=== PATIENT | male | born 1935 | race Caucasian/White ===

== ENCOUNTER 2016-12-29 06:46 | Inpatient (IN) | payer MEDICARE, BC ==
[~2016-12-29 06:46] MED LIST: HYDROCODONE-APA1 TAB PO; LASIX40 MG PO; PLAVIX75 MG PO; PRAVACHOL40 MG PO; PRAVACHOL80 MG; PRINIVIL20 MG; PRINIVIL20 MG PO; TOPROL XL100 MG PO
[2016-12-29 07:26] LABS: BASOPHILS 0.3 % (0-2); EOSINOPHILS 0.5 % (0-7); HEMATOCRIT 40.5 % (42.0-54.0); HEMOGLOBIN 13.5 g/dL (13.5-17.5); IMMATURE GRANULOCYTES 0.2 % (0-5); LYMPHOCYTES 6.2 % (15-50); MCH 30.9 pg (26.0-34.0); MCHC 33.3 g/dL (31.0-37.0); MCV 92.7 fL (80.0-100.0); MEAN PLATELET VOLUME 10.2 fL (7.4-10.4); NEUTROPHILS 83.8 % (40-80); RBC 4.37 10x6/uL (4.20-6.10); WBC 16.6 10x3/uL (4.8-10.8)
[2016-12-29 07:28] LABS: PLATELET COUNT 221 10x3/uL (130-400)
[2016-12-29 07:41] LABS: ALBUMIN 3.6 g/dL (3.4-5.0); ANION GAP 16.4 mmol/L (8-16); BILIRUBIN - TOTAL 0.81 mg/dL (0.2-1.3); CALCIUM 9.9 mg/dL (8.5-10.1); CARBON DIOXIDE 25.3 mmol/L (21.0-32.0); CREATININE - SERUM 1.1 mg/dL (0.6-1.3); POTASSIUM - SERUM 4.7 mmol/L (3.5-5.1); PROTEIN - SERUM 7.8 g/dL (6.4-8.2)
[2016-12-29 07:44] LABS: APPEARANCE CLEAR (CLEAR); COLOR YELLOW (YELLOW); NITRITE NEGATIVE (NEGATIVE)
[2016-12-29 07:45] LABS: BILIRUBIN NEGATIVE (NEGATIVE); GLUCOSE NEGATIVE (NEGATIVE); KETONE SMALL mg/dL (NEGATIVE); PROTEIN 3+ mg/dL (NEGATIVE); UROBILINOGEN NORMAL (NORMAL)
[2016-12-29 07:47] LABS: BACTERIA FEW /hpf (NONE SEEN); EPITHELIAL CELLS 0-5 /hpf (0-5); RED CELLS - URINE 0-5 /hpf (0-5); WHITE CELLS - URINE 0-5 /hpf (0-5)
[2016-12-29 08:01] LABS: TROPONIN-I 0.181 ng/mL (0.000-0.060)
--- NOTE | 2016-12-29 10:10 | NUR ---
0950- RECEIVED PT VIA WHEELCHAIR FROM OR NURSE.
[2016-12-29 10:14] VITALS: BP 180/96; BMI 24.8
[2016-12-29 12:00] VITALS: BP 182/86
[2016-12-29 12:25] LABS: CKMB 3.9 U/L (0.0-3.6); CREATINE KINASE 154 UL (21-232); TROPONIN-I 0.212 ng/mL (0.000-0.060)
--- NOTE | 2016-12-29 14:34 | NUR ---
ON MONITOR SHOWING SR, HR 83 WITH PVCS PER MANISH IN TELEMETRY.
--- NOTE | 2016-12-29 15:41 | NUR ---
EKG DONE AND PLACED IN CHART.
[2016-12-29 16:00] VITALS: BP 122/73
--- NOTE | 2016-12-29 18:21 | NUR ---
PT IS CURRENTLY LAYING IN BED WITH EYES OPEN RESTING. IS AT BEDSIDE. NO NEED AT THIS CURRENT TIME. WILL CONTINUE TO MONITOR.
[2016-12-29 18:43] LABS: CREATINE KINASE 196 UL (21-232)
[2016-12-29 18:51] LABS: TROPONIN-I 0.163 ng/mL (0.000-0.060)
--- NOTE | 2016-12-29 19:41 | NUR ---
RESUMED CARE OF PT, LYING IN BED WITH EYES CLOSED RESPIRATIONS EVEN AND UNLABORED ON 2LPM VIA NC. AT BEDSIDE, NO NEEDS NOTED AT THIS TIME. 61 SR ON TELEMETRY. LEFT HAND SALINE LOCKED. CALL LIGHT IN REACH. WILL CONTINUE TO MONITOR. SEE NURSE ASSESSMENT.
[2016-12-29 20:00] VITALS: BP 161/64
[2016-12-30] VITALS: BP 167/62
--- NOTE | 2016-12-30 01:12 | NUR ---
IV INFILTRATED TO LEFT HAND. 22 GAUGE X 2 STICKS TO RIGHT FOREARM. LASIX TO RIGHT FOREARM. WILL CONTINUE TO MONITOR. CALL LIGHT IN REACH.
--- NOTE | 2016-12-30 05:31 | NUR ---
NO CHANGES FROM PREVIOUS ASSESSMENT, AT BEDSIDE. RESTED WELL LAST NIGHT.
[2016-12-30 06:06] LABS: BASOPHILS 0.4 % (0-2); EOSINOPHILS 2.9 % (0-7); HEMATOCRIT 37.5 % (42.0-54.0); HEMOGLOBIN 12.2 g/dL (13.5-17.5); IMMATURE GRANULOCYTES 0.1 % (0-5); LYMPHOCYTES 15.9 % (15-50); MCH 30.2 pg (26.0-34.0); MCHC 32.5 g/dL (31.0-37.0); MCV 92.8 fL (80.0-100.0); MEAN PLATELET VOLUME 9.9 fL (7.4-10.4); MONOCYTES 10.7 % (2-11); PLATELET COUNT 223 10x3/uL (130-400); RBC 4.04 10x6/uL (4.20-6.10); RDW 12.9 % (11.5-14.5)
[2016-12-30 06:13] LABS: WBC 10.9 10x3/uL (4.8-10.8)
[2016-12-30 06:23] LABS: ANION GAP 12.9 mmol/L (8-16); CALCIUM 9.4 mg/dL (8.5-10.1); CARBON DIOXIDE 27.1 mmol/L (21.0-32.0); CREATININE - SERUM 1.4 mg/dL (0.6-1.3)
[2016-12-30 08:00] VITALS: BP 182/91
[2016-12-30 12:00] VITALS: BP 179/82
[2016-12-30 13:21] VITALS: BMI 24.7
[2016-12-30 16:00] VITALS: BP 166/85
--- NOTE | 2016-12-30 19:16 | NUR ---
THIS SHIFT PT HAS AMBULATED IN ROOM AND IN HALLWAY WITH P.T. PT VERY ANXIOUS ABOUT DR. SHAH SEEING HIM. EXPLAINED TO HIM ABOUT BEING IN ISOLATION AND ALYSSA WILL SEE AFTER NOT IN ISOLATION. SEE ASSESSMENT FOR FURTHER EVAL.
--- NOTE | 2016-12-30 19:25 | NUR ---
ROUNDING NOTE: PT IS ON DROPLET PRECAUTIONS FOR +FLU. PT IS A,A,OX3, SITTING UP IN BED AT CHANGE OF SHIFT W/ AT THE BEDSIDE. PT IS VERY [place]. PT ASKING QUESTIONS ABOUT INSURANCE COVERAGE, REFERRED PT AND TO CHECK WITH BUSINESS OFFICE DURING DAYTIME HOURS. RIGHT FOREARM IV SITE, SALINE LOC. ON IS NSR ON THE MONITOR. NO NEEDS OTHER THAN A FRESH ICE WATER. WILL CONT TO MONITOR.
[2016-12-30 22:18] VITALS: BP 176/77
[2016-12-31 02:50] VITALS: BP 150/69
[2016-12-31 05:24] LABS: BASOPHILS 0.7 % (0-2); EOSINOPHILS 3.5 % (0-7); HEMATOCRIT 38.8 % (42.0-54.0); HEMOGLOBIN 12.6 g/dL (13.5-17.5); IMMATURE GRANULOCYTES 0.2 % (0-5); MCH 30.1 pg (26.0-34.0); MCHC 32.5 g/dL (31.0-37.0); MCV 92.8 fL (80.0-100.0); MEAN PLATELET VOLUME 9.8 fL (7.4-10.4); MONOCYTES 11.6 % (2-11); PLATELET COUNT 234 10x3/uL (130-400); RBC 4.18 10x6/uL (4.20-6.10); WBC 9.8 10x3/uL (4.8-10.8)
[2016-12-31 05:35] VITALS: BP 170/67
[2016-12-31 05:53] LABS: ANION GAP 10.7 mmol/L (8-16); CALCIUM 9.4 mg/dL (8.5-10.1); CARBON DIOXIDE 32.2 mmol/L (21.0-32.0); CREATININE - SERUM 1.3 mg/dL (0.6-1.3); POTASSIUM - SERUM 3.9 mmol/L (3.5-5.1)
--- NOTE | 2016-12-31 07:30 | NUR ---
AM ROUNDING DONE WITH NIGHT NURSE. PATIENT IS UP IN HIS ROOM (DROPLET ISOLATION) WITH IN ROOM IN PPE. RIGHT FA SEEN WITH SALINE LOCK. ON HEART MONITOR SHOWING SB, HR 59. ON EP, LAB VALUES ARE GOOD. ON ROOM AIR. WILL MONIOTR.
[2016-12-31 08:32] VITALS: BP 163/79
[2016-12-31 12:34] VITALS: BP 174/91
[2016-12-31] MEDS ORDERED: TAMIFLU75 MG PO (14:12)
[2016-12-31] MEDS ORDERED: NITRO-DUR0.3 MG TRANSDERM (14:13)
--- NOTE | 2016-12-31 16:20 | NUR ---
VERBAL AND WRITTEN DISCHARGE INSTRUCTIONS GIVEN TO PATIENT. SALINE LOCK REMOVED WITH CATH TIP INTACT. DISCHARGED WITH YELLOW MASK ON HOME VIA WHEELCHAIR.
--- NOTE | 2016-12-31 17:28 | NUR ---
Patient Name: SATURNINO SANDOVAL Admission Status: ER Accout number: [id number] Admission Date: 12-29-2016 : 1935 Admission Diagnosis:HYPOXEMIA Attending: MECHELLE SMITH Current LOS: 2 Anticipated DC Date: 12-31-2016 Planned Disposition: Home Primary Insurance: MEDICARE A & B Discharge Planning Comments: * Is the patient Alert and Oriented? Yes 0 * How many steps to enter\exit or inside your home? NONE 0 * PCP DR. CONDE CARIOLOGIST DR. SHAH 0 * Pharmacy [facility] 0 * Preadmission Environment Home with Family 0 * ADLs Independent 0 * Equipment Cane Walker 0 * Other Equipment NO MEDICAL EQUIPMENT PROVIDER PREFERENCE 0 * List name and contact numbers for known caregivers / representatives who currently or will assist patient after discharge: NAHID SANDOVAL, SPOUSE, 0 * Community resources currently utilized None 0 * Please name any agencies selected above. NONE 0 * Additional services required to return to the preadmission environment? No 0 * Can the patient safely return to the preadmission environment? Yes 0 * Has this patient been hospitalized within the prior 30 days at any hospital? No 0 CM MET WITH PT IN ROOM TO DISCUSS DISCHARGE PLANNING AND NEEDS. PT REPORTS LIVING AT HOME INDEPENDENTLY WITH SPOUSE. PT HAS CANE AND WALKER WITH NO MEDICAL EQUIPMENT PROVIDER AND NO OUTSIDE SERVICES ASSISTING IN THE HOME. CM DISCUSSED AVAILABILITY OF HOME HEALTH, REHAB SERVICES AND MEDICAL EQUIPMENT. PT DENIES DISCHARGE NEEDS, REPORTS HIS IS HERE TO PICK HIM UP FOR DISCHARGE HOME. IMPORTANT MESSAGE FROM MEDICARE PROVIDED AND EXPLAINED. Assistant Mechanic: Dylan Washington
== END 2016-12-31 16:27 | disposition home or self-care (01) | DRG 152 ==
LOC: D.ER 06:46 → D.M2 08:55
PROVIDERS: Emergency Medicine; ADMIT Family Medicine
DX: J11.1 Influenza due to unidentified influenza virus with other respiratory manifestations (principal); I50.31 Acute diastolic (congestive) heart failure; I25.10 Atherosclerotic heart disease of native coronary artery without angina pectoris; I11.0 Hypertensive heart disease with heart failure; Z72.0 Tobacco use; Z95.5 Presence of coronary angioplasty implant and graft

== ENCOUNTER 2017-01-07 07:42 | Inpatient (IN) | payer MEDICARE, BC ==
[~2017-01-07] VITALS: Ht 170.2 cm; Wt 73.6 kg
--- NOTE | ~2017-01-07 | HEMODYNAMI ---
PATIENT:SATURNINO SANDOVAL DARRELL MEDICAL RECORD: [id number] : [birth year] LOCATION:[address] ADMISSION DATE: 01/07/17 Generatedon:01/08/201712:56 Patient name: SATURNINO SANDOVAL Patient #: [id number] SSN: : 1935 Date of study: 01/08/2017 Page: Of Hemodynamic Procedure Report Patient Data Patient Demographics Procedure consent was obtained First Name: SATURNINO Gender: Male Last Name: LORI : 1935 [facility] Initial: CHALINO Age: 81 year(s) Patient #: [id number] Race: Additional ID: [id number] Contact details Address: [address] [place] [address] State: [place] City: [facility] Zip code: [address] Past Medical History History of disease Date Diagnosis Comments CAD PVD Allergies: No known allergies Admission Admission Data Admission Date: 01/07/2017 Admission Time: 11:18 Room #: [facility] Procedure Procedure Types Cath Procedure Diagnostic Procedure [facility] w/Coronaries PCI Procedure Coronary Stent Coronary Stent Initial Miscellaneous Procedures Moderate Sedation up to 30 minutes Procedure Description Procedure Date Procedure Date: 01/08/2017 Procedure Start Time: 12:27 Procedure End Time: 12:56 Procedure Staff Name Function Eliecer Castellano MD Performing Physician Shelli Solis RT Monitor Soo Novak RT Scrub Joseph Osuna RN Nurse Procedure Data Cath Procedure Fluoroscopy Diagnostic fluoroscopy Total fluoroscopy Time: 11 time: 11 min min Diagnostic fluoroscopy Total fluoroscopy dose: 759 dose: 759 mGy mGy Contrast Material Contrast Material Type Amount (ml) Isovue 300 97 Entry Location Entry Primary Successful Side Size Upsize Upsize Entry Closure Harrison ccessful Closure Location (Fr) 1 (Fr) 2 (Fr) Remarks Device Remarks Radial Right 6 Fr Mechanical artery Short Compression Estimated blood loss: 10 ml Diagnostic catheters Device Type Used For End Catheter Placement Terumo 5Fr Luis 110cm LV Angiography catheter Terumo 5Fr Luis 110cm Left Coronary catheter Angiography Terumo 5Fr Luis 110cm Right Coronary catheter Angiography Procedure Complications No complications Procedure Medications Medication Administration Route Dosage Oxygen NC 2 l/min Heparin Flush Bag added to field 2 bags (1000units/500ml NS) 0.9% NaCl I.V. 100 ml/hr Radial Cocktail added to field 1 syringe (Verapomil 2mg/Nitro 400mcg/Heparin 1500units) Fentanyl I.V. 50 mcg Versed I.V. 1 mg Radial Cocktail I.A. 1 syringe (Verapomil 2mg/Nitro 400mcg/Heparin 1500units) Heparin Bolus I.V. 4000 units Hemodynamics Rest Heart Rate: 52 (bpm) Snapshots Pre Cath Intra NCS Post Cath Vital Signs Time Heart Resp SPO2 etCO2 NIBP (mmHg) Rhythm Pain Sedation Rate (ipm) (%) (mmHg) Status Level (bpm) 12:14:53 51 22 99 0 139/85(118) NSR 0 (11) 10(A) , No pain 12:20:35 50 18 99 0 155/84(131) NSR 0 (11) 10(A) , No pain 12:26:09 50 25 98 12.7 174/71(134) NSR 0 (11) 9(A) , No pain 12:30:56 57 24 96 0 117/64(88) NSR 0 (11) 9(A) , No pain 12:35:34 55 21 95 0 107/65(78) NSR 0 (11) 9(A) , No pain 12:40:15 57 20 95 0 118/62(95) NSR 0 (11) 9(A) , No pain 12:44:54 57 19 96 0 120/81(111) NSR 0 (11) 9(A) , No pain 12:50:17 61 19 97 0 132/68(105) NSR 0 (11) 9(A) , No pain 12:55:00 54 20 97 0 128/76(104) NSR 0 (11) 9(A) , No pain Medications Time Medication Route Dose Verified Delivered Reason Note s Effectiveness by by 12:14:30 Oxygen NC 2 l/min Eliecer Ruiz Per physician Nona Osuna RN 12:14:41 Heparin Flush added 2 bags Eliecer Ruiz used for Bag to Nona Osuna masking machine feeder (1000units/500ml field NS) 12:14:53 0.9% NaCl I.V. 100 Eliecer Ruiz Per physician ml/hr Nona Osuna RN 12:15:03 Radial Cocktail added 1 Eliecer Ruiz used for (Verapomil to syringe Nona Osuna RN procedure 2mg/Nitro field 400mcg/Heparin 1500units) 12:18:07 Fentanyl I.V. 50 mcg Eliecer Ruiz for sedation Nona Osuna RN 12:18:17 Versed I.V. 1 mg Eliecer Ruiz for sedation Nona Osuna RN 12:29:14 Radial Cocktail I.A. 1 Eliecer Gonzáles for (Verapomil syringe Nona Castellano MD vasodilation 2mg/Nitro 400mcg/Heparin 1500units) 12:32:32 Heparin Bolus I.V. 4000 Eliecer Ruiz for units Nona Osuna RN anticoagulation Procedure Log Time Note 11:40:26 Time tracking: Regular hours 11:40:31 Plan of Care:Hemodynamics will remain stable., Cardiac rhythm will remain stable., Comfort level will be maintained., Respiratory function will remain adequate., Patient/ family verbilizes understanding of procedure., Procedure tolerated without complication., Recovers from procedure without complications.. 11:52:51 Shelli Counts RT(R) sent for patient. Start room use. 12:07:08 Patient received from PCU to CCL 1 Alert and oriented. Tansferred to table in Supine position. 12:13:57 Vital chart was started 12:14:30 Oxygen 2 l/min NC was administered by Joseph Osuna RN; Per physician; 12:14:41 Heparin Flush Bag (1000units/500ml NS) 2 bags added to field was administered by Joseph Osuna RN; used for procedure; 12:14:53 0.9% NaCl 100 ml/hr I.V. was administered by Joseph Osuna RN; Per physician; 12:15:03 Radial Cocktail (Verapomil 2mg/Nitro 400mcg/Heparin 1500units) 1 syringe added to field was administered by Joseph Osuna RN; used for procedure; 12:17:16 Warm blankets applied, and dong hugger turned on for patient comfort. 12:17:16 Correct patient and procedure confirmed by team. 12:17:18 Signed procedure consent form obtained from patient. 12:17:19 ECG and BP/O2 sat monitors applied to patient. 12:18:07 Fentanyl 50 mcg I.V. was administered by Joseph Osuna RN; for sedation; 12:18:17 Versed 1 mg I.V. was administered by Joseph Osuna RN; for sedation; 12:18:54 Baseline sample Acquired. 12:18:57 Full Disclosure recording started 12:19:01 Rhythm: sinus bradycardia 12:19:15 H&P Date Dictated: 01/07/2017 Within 30 days and on chart., H&P Addendum completed by physician on day of procedure. (MUST COMPLETE FOR ALL OUTPATIENTS). 12:19:17 Pre-procedure instructions explained to patient. 12:19:17 Pre-op teaching completed and patient verbalized understanding. 12:19:18 Family in waiting room. 12:19:20 Patient NPO since Midnight. 12:19:33 Patient allergic to No known allergies 12:19:35 Is the patient allergic to Iodine/contrast media? No. 12:19:38 Is patient on blood thinner?Yes 12:19:41 ACC The patient was administered the following blood thiners within the last 24 hours: ACCPlavix 12:21:36 Patient diabetic? No. 12:21:41 Previous problem with sedation/anesthesia? No ? 12:21:42 Snore? Yes 12:21:43 Sleep apnea? No 12:21:44 Deviated septum? No 12:21:45 Opens mouth fully? Yes 12:21:46 Sticks out tongue? Yes 12:21:47 Airway obstruction? No ? 12:21:49 Dentures? No ? 12:21:53 Pre procedure: right dorsailis pedis pulse 2+ Normal; easily identifiable; not easily obliterated 12:21:55 Modified Du's test Ulnar < 7 seconds 12:21:59 Patient pain scale 0/10 ?. 12:22:07 IV patent on arrival in left forearm with 0.9% NaCl at [facility]. 12:22:11 Lab results completed and on chart. 12:22:15 Right Radial area was prepped with chlora-prep and draped in sterile fashion 12:22:16 Alarms reviewed by R. N. 12:22:16 Sharps counted by scrub and verified by RNileN. 12::23 Zero performed for pressure channel P1 12:: Zero performed for pressure channel P1 12::37 Final Timeout: patient, procedure, and site verified with staff and physician. All members of the team are in agreement. 12::40 Right Radial site verified by team. 12::43 Physical assessment completed. ASA score P 2 - A patient with mild systemic disease as per Eliecer Castellano MD. 12::46 Sedation plan: IV Moderate Sedation Medication:Versed, Fentanyl 12::50 Use device set Radial Dx 12::51 Acist Syringe opened to sterile field. 12::52 Medline Cath Pack opened to sterile field. 12::52 Bag Decanter opened to sterile field. 12::52 Terumo 6Fr Slender Glidesheath opened to sterile field. 12::53 St Neal 260cm J .035 wire opened to sterile field. 12::53 Acist Hand Control opened to sterile field. 12::53 Acist Manifold opened to sterile field. 12::54 Tegaderm 4 x 4 opened to sterile field. 12:22:54 MBrace Wrist Support opened to sterile field. 12:27:10 Procedure started. 12::18 Local anesthetic to right radial artery with Lidocaine 2% by Eliecer Castellano MD.INITIAL ACCESS ONLY 12:27:50 A 6 Fr Short sheath was inserted into the Right Radial artery 12:29:11 A Terumo 5Fr Luis 110cm catheter was advanced over the wire and used for LV Angiography. 12:29:14 Radial Cocktail (Verapomil 2mg/Nitro 400mcg/Heparin 1500units) 1 syringe I.A. was administered by Eliecer Castellano MD; for vasodilation; 12::37 LV gram done using ZELAYA 12::42 EF : 55 % 12::46 Injector settings: Ml/sec: 5, Volume: 15, 12:29:54 A Terumo 5Fr Luis 110cm catheter was advanced over the wire and used for Left Coronary Angiography. 12:30:24 A Terumo 5Fr Luis 110cm catheter was advanced over the wire and used for Right Coronary Angiography. 12:31:14 Catheter removed. 12:31:36 Cordis 6FR XBLAD 3.5 guide catheter opened to sterile field. 12:31:36 Piper Whisper J 300cm 0.014 guide wire opened to sterile field. 12:31:37 Natalya BasixCompak Inflation Kit opened to sterile field. 12:32:21 6 Fr XBLAD 3.5 guide catheter was inserted over the wire 12:32:32 Heparin Bolus 4000 units I.V. was administered by Joseph Osuna RN; for anticoagulation; 12:33:13 Whisper wire advanced. 12:34:58 The Medtronic Integrity 2.5 X 22 stent was advanced then removed because of failure to cross lesion 12:36:16 Inflation number: 1 A Euphora 2.5 x 20 Balloon was prepped and advanced across the 1st Diag, then inflated to 15 ALEXANDER for 0:04 (min:sec). 12:36:27 Inflation number: 2 The Euphora 2.5 x 20 Balloon was reinflated across the 1st Diag, to 17 ALEXANDER for 0:07 (min:sec). 12:36:37 Balloon removed over the wire. 12:38:19 Inflation Number: 3 A Medtronic Integrity 2.5 X 22 stent was prepped and advanced across the 1st Diag. The stent was deployed at 13 ALEXANDER for 0:08 (min:sec). 12:38:29 Stent catheter was removed intact over wire. 12:40:50 The Medtronic Integrity 2.5 X 12 stent was advanced then removed because of failure to cross lesion 12:42:03 Inflation number: 4 The Euphora 2.5 x 20 Balloon was reinflated across the 1st Diag, to 19 ALEXANDER for 0:09 (min:sec). 12:44:19 The Medtronic Integrity 2.5 X 12 stent was advanced then removed because of failure to cross lesion 12:45:45 Choice PT ES wire advanced. 12:46:26 Cornelia Sci Choice PT Extra Support J 300cm .014 gu opened to sterile field. 12:47:11 Inflation number: 5 A Cornelia Sci Wasatch 3.0 X 12 balloon was prepped and advanced across the 1st Diag, then inflated to 13 ALEXANDER for 0:08 (min:sec). 12:47:19 Inflation number: 6 The Cornelia Sci Wasatch 3.0 X 12 balloon was reinflated across the 1st Diag, to 13 ALEXANDER for 0:05 (min:sec). 12:47:37 Inflation number: 7 The Cornelia [employer] Wasatch 3.0 X 12 balloon was reinflated across the 1st Diag, to 17 ALEXANDER for 0:06 (min:sec). 12:47:49 Balloon removed over the wire. 12:49:20 whisper removed 12:49:29 Inflation Number: 8 A Medtronic Integrity 2.5 X 12 stent was prepped and advanced across the 1st Diag. The stent was deployed at 21 ALEXANDER for 0:05 (min:sec). 12:49:45 Stent catheter was removed intact over wire. 12:49:47 Wire removed. 12:49:48 Guide catheter removed. 12:50:06 Sheath removed intact; hemostasis achieved with Mechanical Compression to the Right Radial artery. 12:50:08 Procedure ended.(Physican Out) 12:50:18 Fluoroscopy time 11.00 minutes. 12:50:27 Flurop Dose total: 759 12:50:27 Fluoroscopy dose: 759 mGy 12:50:41 Contrast amount:Isovue 300 97ml. 12:50:44 Sharps counted by scrub and verified by R.N. 12:50:47 TR band inflated with 12cc of air. 12:50:48 Insertion/operative site no bleeding no hematoma. 12:50:53 Post right radial artery:stable, clean and dry 12:50:55 Post Procedure Pulses reassessed and unchanged 12:50:57 Post-procedure physical assessment completed. ASA score P 2 - A patient with mild systemic disease as per Eliecer Castellano MD. 12:51:00 Post procedure rhythm: unchanged. 12:51:02 Estimated blood loss: 10 ml 12:51:04 Post procedure instruction explained to patient.Patient verbalizes understanding. 12:51:05 Patient needs reinforcement of post procedure teaching. 12:51:21 Procedure type changed to Cath procedure, Diagnostic procedure, LHC, LHC w/Coronaries, PCI procedure, Coronary Stent, Coronary Stent Initial, Miscellaneous Procedures, Moderate Sedation up to 30 minutes 12:51:43 Terumo TR Band Standard opened to sterile field. 12:52:32 Procedure Complication : No complications 12:52:38 See physician's report for complete and final results. 12:54:19 Procedure and supply charges have been captured, reviewed, submitted and are correct. 12:55:52 Vital chart was stopped 12:55:54 Report given to PCU. 12:55:57 Patient transfered to PCU with Bed. 12:56:10 Procedure ended. 12:56:10 Full Disclosure recording stopped 12:56:14 End room use (Document Last) Intervention Summary Intervention Notes Time ActionType Lesion and Equipment Action# Pressure Duration Attributes Used 12:34:58 Discard Medtronic Stent Integrity 2.5 X 22 stent 12:36:16 Inflate 1st Diag Euphora 1 15 00:04 balloon 2.5 x 20 Balloon 12:36:27 Reinflate 1st Diag Euphora 2 17 00:07 balloon 2.5 x 20 Balloon 12:38:19 Place stent 1st Diag Medtronic 3 13 00:09 Integrity 2.5 X 22 stent 12:40:50 Discard Medtronic Stent Integrity 2.5 X 12 stent 12:42:03 Reinflate 1st Diag Euphora 4 19 00:09 balloon 2.5 x 20 Balloon 12:44:19 Discard Medtronic Stent Integrity 2.5 X 12 stent 12:47:11 Inflate 1st Diag Cornelia 5 13 00:08 balloon Sci Wasatch 3.0 X 12 balloon 12:47:19 Reinflate 1st Diag Cornelia 6 13 00:05 balloon Sci Wasatch 3.0 X 12 balloon 12:47:37 Reinflate 1st Diag Cornelia 7 17 00:06 balloon Sci Wasatch 3.0 X 12 balloon 12:49:29 Place stent 1st Diag Medtronic 8 21 00:06 Integrity 2.5 X 12 stent Device Usage Item Name Manufacture Quantity Catalog Number [facility] Part Current [facility] Lot# / Charge Number Stock Stock Serial# Code Acist Acist 1 64674 896924 193900 571804 20 Syringe Medical Systems Inc Medline Cardinal 1 [id number] 409505 75780 923405 5 Cath Pack Health Bag Microtek 1 2001S 818473 58247 288583 5 Blendspace Inc. Terumo 6Fr Terumo 1 [id number] 086678 242098 713630 [address] Neal St Neal 1 254383 812315 207392 459538 30 260cm J .035 wire Acist Hand Acist 1 31032 269217 004655 520096 5 Simplee Medical Systems Inc Acist Acist 1 52637 784070 647901 954684 5 Everest Software Medical Systems Inc Tegaderm 4 3M 1 1626W 013369 663102 954596 5 x 4 MBrace Advanced 1 140-0250-00 633825 88066 735356 5 Wrist Vascular Support Dynamics Terumo 5Fr Terumo 1 71-1451 954167 664930 769717 5 Luis 110cm catheter Cordis 6FR Cardinal 1 [id number] 555059 384217 912161 10 XBLAD 3.5 Health guide catheter Piper Piper 1 [id number] 587834 765274 176925 5 Whisper J Vascular 300cm 0.014 guide wire Merit Merit 1 [id number] 350247 435481 956165 15 BasixCompak Medical Inflation Kit Medtronic Medtronic 1 [id number] 394900 841123 5 [id number] Integrity 2.5 X 22 stent Euphora 2.5 Medtronic 1 [id number] 165487 536953 512462 5 [id number] x 20 Balloon Medtronic Medtronic 2 [id number] 774423 419585 3 [id number] Integrity [id number] 2.5 X 12 stent Cornelia Sci Cornelia 1 [id number] 234071 030543 383979 5 Choice PT Scientific Extra Support J 300cm .014 gu Cornelia Sci Cornelia 1 [id number] 549884 596228 918888 1 [id number] Parametric Sound Scientific 3.0 X 12 balloon Terumo TR Terumo 1 [id number] 033811 315218 440038 40 Band Standard Signature Audit [place] Stage Time Signature Unsigned Intra-Procedure 01/08/2017 Shelli 12:56:23 PM Counts RT(R) Signatures Monitor : Shelli Signature : Counts RT Date : Time : [facility] [address] [place] [address]
[~2017-01-07 07:42] MED LIST changes: +NITRO-DUR0.3 MG TRANSDERM; +TAMIFLU75 MG PO
[2017-01-07 08:14] LABS: BASOPHILS 0.4 % (0-2); EOSINOPHILS 1.3 % (0-7); HEMOGLOBIN 14.1 g/dL (13.5-17.5); IMMATURE GRANULOCYTES 0.3 % (0-5); LYMPHOCYTES 10.3 % (15-50); MCH 30.2 pg (26.0-34.0); MCHC 32.8 g/dL (31.0-37.0); MCV 92.1 fL (80.0-100.0); MEAN PLATELET VOLUME 9.4 fL (7.4-10.4); MONOCYTES 8.5 % (2-11); NEUTROPHILS 79.2 % (40-80); RBC 4.67 10x6/uL (4.20-6.10); RDW 12.8 % (11.5-14.5); WBC 14.2 10x3/uL (4.8-10.8)
[2017-01-07 08:23] LABS: ALBUMIN 3.8 g/dL (3.4-5.0); ALKALINE PHOSPHATASE 76 U/L (46-116); ALT (SGPT) 22 U/L (10-68); CALC OSMOLALITY 281 mosm/kg (275-300); CALCIUM 9.9 mg/dL (8.5-10.1); CARBON DIOXIDE 27.2 mmol/L (21.0-32.0); CHLORIDE - SERUM 101 mmol/L (98-107); CREATININE - SERUM 1.1 mg/dL (0.6-1.3); GLUCOSE 139 mg/dL (74-106); POTASSIUM - SERUM 4.6 mmol/L (3.5-5.1); PROTEIN - SERUM 7.8 g/dL (6.4-8.2); SODIUM 139 mmol/L (136-145); UREA NITROGEN 18 mg/dL (7-18); eGFR NON AFRICAN AMERICAN 68 mL/min (90-120)
[2017-01-07 08:33] LABS: CKMB 1.5 U/L (0.0-3.6); CREATINE KINASE 60 UL (21-232); PRO BNP 8763 pg/mL (0-450); TROPONIN-I 0.029 ng/mL (0.000-0.060)
[2017-01-07 08:44] LABS: PLATELET COUNT 303 10x3/uL (130-400)
--- NOTE | 2017-01-07 10:31 | NUR ---
Spoke to Yue in [facility] regarding consult. Faxed face sheet as requested to [phone]. Dr. Elam will be the consulting physician.
--- NOTE | 2017-01-07 12:35 | NUR ---
RECEIVED REPORT FROM SILVIA CANDELARIO IN ER. SILVIA CANDELARIO STATES PTS B/P IS 189/77. THIS NURSE ASKS IF PT HAS HAD ANY PRN MEDICATION OR ANYTHING FOR B/P IN ER. SILVIA CANDELARIO STATES HE HAS NOT HAD ANYTHING ORDERED. THIS NURSE INFORMS SILVIA CANDELARIO THAT PT NEEDS SOMEHTING FOR B/P BEFORE BEING TRANSFERRED TO FLOOR. SILVIA CANDELARIO CALLS BACK AND STATES PT WAS GIVEN CLONDINDE 0.2MG IN ER PER ORDER. WILL AWAIT PT ARRIVAL. WILL CONTINUE TO MONITOR.
--- NOTE | 2017-01-07 12:37 | NUR ---
PT TO FLOOR VIA WHEELCHAIR ACCOMPANIED BY HOSPTIAL STAFF AND SPOUSE. WILL ADMIT PT AND CONTINUE TO MONITOR.
[2017-01-07 12:44] VITALS: BP 163/73; Ht 170.2 cm; Wt 73.6 kg
--- NOTE | 2017-01-07 13:10 | NUR ---
QUICKSTART DONE, ADMISSION ASSESSMENT DONE, AND ADMISSION HISTORY DONE. PT PLACED ON MONITOR SHOWING SR, HR 65 WITH ELEVATED T WAVE (PER MANISH IN TELEMETRY). NO NEED AT THIS TIME. WILL CONTINUE TO MONITOR AND CONTINUE WITH PLAN OF CARE.
[2017-01-07 15:39] VITALS: BP 129/68
[2017-01-07 15:44] LABS: CKMB 1.1 U/L (0.0-3.6); CREATINE KINASE 59 UL (21-232); TROPONIN-I 0.033 ng/mL (0.000-0.060)
--- NOTE | 2017-01-07 17:14 | NUR ---
CALLED PTS (TO GET TELEPHONE CONSENTS FOR CARDIAC CATH TOMORROW AND PT IS CONFUSED). LEFT PTS VOICEMAIL. WILL AWAIT PTS TO RETURN TO UNIT OR AWAIT CALLBACK. PT IS CURRENTLY SITTING UP ON SIDE OF BED EATING DINNER. NO NEED AT THIS CURRENT TIME. WILL CONTINUE TO MONITOR.
--- NOTE | 2017-01-07 17:45 | NUR ---
PTS SIGNED PTS CONSENTS FOR CARDIAC CATH TOMORROW DUE TO PT BEING CONFUSED. PT AWARE TO NOT EAT OR DRINK ANYTHING AFTER MIDNIGHT TONIGHT. NPO SIGN PLACED ON DOOR.
--- NOTE | 2017-01-07 19:45 | NUR ---
ROUNDING NOTE: PT LAYING IN BED WITH AT THE BEDSIDE AT THE CHANGE OF SHIFT. PT IS PLEASANTLY CONFUSED. HE DOES NOT KNOW WHERE HE IS OR WHY HE IS HERE. AND I NEED TO REORIENT HIME FREQUENTLY, BUT THEN HE DOES REMEMBER THAT HE IS HAVING A HEART CATHETERIZATION TOMORROW. PT WILL BE NPO AFTER MN FOR HIS PROCEDURE. PT IS ON RA. HE WAS SOB, BUT AT THE MOMENT DENIES ANY DYSPNEA. LUNG SOUNDS CLEAR. 20G SALINE LOC TO LEFT HAND. WILL CONT TO MONITOR.
[2017-01-07 21:32] LABS: CKMB 1.1 U/L (0.0-3.6); CREATINE KINASE 71 UL (21-232); TROPONIN-I 0.031 ng/mL (0.000-0.060)
[2017-01-07 22:54] VITALS: BP 154/61
[2017-01-08 02:52] LABS: CKMB 0.8 U/L (0.0-3.6); CREATINE KINASE 60 UL (21-232); TROPONIN-I 0.036 ng/mL (0.000-0.060)
[2017-01-08 04:27] VITALS: BP 174/71
--- NOTE | 2017-01-08 08:01 | NUR ---
AM ROUNDING- RECEIVED REPORT FROM DEEP FAT COOK FRY NURSE CECI. PT IS CURRENTLY LAYING IN BED ON BACK WITH EYES OPEN RESTING. PT APPEARS TO BE CONSFUSED AND THINKS IT IS 7PM. THIS NURSE INFORMED PT THAT IT IS 7AM. PTS IS AT BEDSIDE. PT IS NPO CURRENTLY FOR CARDIAC CATH TODAY. CONSENTS ARE SIGNED AND PLACED IN CHART. ON ROOM AIR. ON MONITOR SHOWING SB, HR 48. IV SEEN TO LEFT HAND THAT IS CURRENTLY SALINE LOCKED. NO NEED AT THIS CURRENT TIME. WILL CONTINUE TO MONITOR AND CONTINUE WITH PLAN OF CARE.
[2017-01-08 08:30] VITALS: BP 173/63
--- NOTE | 2017-01-08 08:52 | NUR ---
CALLED COMMERCIAL SALES SPECIALIST AND SPOKE WITH ROBI. WENT OVER PTS MORNING MEDICAITONS WITH ROBI IN COMMERCIAL SALES SPECIALIST AND ROBI STATES OK TO GO AHEAD AND GIVE ALL AM MEDICATIONS.
--- NOTE | 2017-01-08 11:50 | NUR ---
PT GIVEN PRE-OP MEDICATIONS DIRECTED WITH SIP OF WATER. IV FLUIDS HUNG AND TUBING PRIMED.
--- NOTE | 2017-01-08 12:04 | NUR ---
PT TO PROTOTYPE ENGINEER MANAGER VIA BED.
[2017-01-08 12:12] VITALS: BP 143/97
--- NOTE | 2017-01-08 13:28 | NUR ---
PT BACK FROM ELEVATOR ERECTOR HELPER. SILVIA AIVLA MET ELEVATOR ERECTOR HELPER NURSE IN ROOM WITH PT AND GOT VITAL SIGNS. T BAND SEEN TO RIGHT WRIST WITH 12CC IN BULB. PT IS LETHARGIC AT THIS TIME. IS AT BEDSIDE. WILL CONTINUE TO MONITOR.
[2017-01-08] MEDS ORDERED: ASPIRIN EC81 M1 PO (14:16)
--- NOTE | 2017-01-08 14:47 | NUR ---
PT IS CURRENTLY LAYING IN BED ON BACK WITH EYES OPEN RESTING. IS AT BEDSIDE. VITAL SIGNS ARE BEING TAKEN. RIGHT WRIST WITH T-BAND HAS NO BLEEDING SEEN. SYRINGE IS STILL IN HAND AND PTS HAND IS ATTATCHED TO BRACE FOR SUPPORT. WILL TAKE AIR OUT OF SYRINGE PER PROTOCOL. D/C ORDER HAS BEEN ACKNOWLEDGED.
[2017-01-08 15:28] VITALS: BP 173/77
--- NOTE | 2017-01-08 15:31 | NUR ---
Patient Name: SATURNINO SANDOVAL Admission Status: ER Accout number: [id number] Admission Date: 01-07-2017 : 1935 Admission Diagnosis: Attending: ADAL DALTON Current LOS: 1 Anticipated DC Date: 01-08-2017 Planned Disposition: Home Primary Insurance: MEDICARE A & B Discharge Planning Comments: * Is the patient Alert and Oriented? Yes 0 * How many steps to enter\exit or inside your home? 1 0 * PCP DR. CONDE 0 * Pharmacy [facility] 0 * Preadmission Environment Home with Family 0 * ADLs Independent 0 * Equipment Cane Walker 0 * Other Equipment NO MEDICAL EQUIPMENT PROVIDER PREFERENCE 0 * List name and contact numbers for known caregivers / representatives who currently or will assist patient after discharge: NAHID SANDOVAL, SPOUSE, 0 * Community resources currently utilized None 0 * Please name any agencies selected above. NONE 0 * Additional services required to return to the preadmission environment? No 0 * Can the patient safely return to the preadmission environment? Yes 0 * Has this patient been hospitalized within the prior 30 days at any hospital? Yes 0 CM MET WITH PT AND SPOUSE IN ROOM TO DISCUSS DISCHARGE PLANNING AND NEEDS. PT REPORTS LIVING AT HOME INDEPENDENTLY WITH SPOUSE. PT'S SPOUSE REPORTS HAVING WALKER AND CANE AT HOME IF NEEDED, PT HAS NO OUTSIDE SERVICES ASSISTING IN THE HOME. CM DISCUSSED AVAILABILITY OF HOME HEALTH, REHAB SERVICES AND MEDICAL EQUIPMENT. PT'S SPOUSE DENIES DISCHARGE NEEDS, REPORTS SHE WILL PICK PT UP FOR DISCHARGE HOME AND IS HOPEFUL THAT THE DOCTOR WILL KEEP PT OVERNIGHT. CM EXPLAINED THAT IF DOING WELL AFTER PROCEDURE, PT SHOULD DISCHARGE HOME AND THAT THE DOCTOR WILL EVALUATE FOR STABILITY. Programming Coordinator: Dylan Washington
--- NOTE | 2017-01-08 16:29 | NUR ---
3CC OF AIR PULLED OUT OF SYRINGE TO PTS T-BAND. NO BLEEDING SEEN. PTS STATES SHE DOESN'T FEEL COMFORTABLE TAKING PT HOME TONIGHT (PT HAS D/C ORDERS). ALONZO LLOYD ON UNIT. PREMA QUIGLEY NP MADE AWARE OF SITUATION. PREMA QUIGLEY NP STATES OK TO KEEP PT HERE AND D/C TOMORROW.
--- NOTE | 2017-01-08 17:37 | NUR ---
PTS RIGHT WRIST CHECKED WHERE TR-BAND IS PLACED. NO BLEEDING SEEN. THIS NURSE REMOVES 2CC OF AIR FROM BULB WITH SRYINGE. PT INSTRUCTED TO CONTINUE HOLD SYRINGE. PT AGREES. STEPPED OFF FLOOR. WILL CONTINUE TO MONITOR.
--- NOTE | 2017-01-08 18:26 | NUR ---
RAMOS ROSADO, CHARGE NURSE AND I PULLED THE REST OF AIR OUT OF BULB SYRINGE FROM TR-BAND (6CC). NO BLEEDING SEEN. THIS NURSE PLACED 2X2 WITH TEGADERM OVER SITE. WILL CONTINUE TO MONITOR.
--- NOTE | 2017-01-08 19:34 | NUR ---
PT IN BED WITH EYES CLOSED AND CHEST RISING. IN CHAIR AT BEDSIDE. NO CONCERNS NOTED. PT EASILY AROUSED WITH VERBAL STIMULI. PT HARD OF HEARING. CALL LIGHT IN REACH. WILL CONTINUE TO OBSERVE.
[2017-01-08 21:14] VITALS: BP 124/48
[2017-01-08 23:29] VITALS: BP 126/57
--- NOTE | 2017-01-09 03:11 | NUR ---
PT IN BED WITH EYES CLOSED AND CHEST RISING. AT BEDSIDE. NO CONCERNS NOTED AT THIS TIME. WILL CONTINUE TO OBSERVE. CALL LIGHT IN REACH.
[2017-01-09 04:49] VITALS: BP 135/65
--- NOTE | 2017-01-09 07:15 | NUR ---
RECIEVED REPORT ON PATIENT, PATIENT IS ALERT AND ORIENTED AT THIS TIME. IS AT BEDSIDE. PATIENT IS SR ON MONITOR WITH A RATE OF 61. PATIENT HAS A L HAND IV THAT IS SL. PATIENT HAD A HEART CATH YESTERDAY THROUGH THE RIGHT WRIST. SITE WNL, NO SIGNS OF HEMATOMA. PATIENT DENIES ANY NEEDS AT THIS TIME. BED LOW AND LOCKED. CPOC
--- NOTE | 2017-01-09 08:50 | NUR ---
MORNING MEDICATIONS GIVEN, IV DC WITH CATH TIP INTACT. DC INSTRUCTIONS GIVEN AND SIGNED. PATIENT DENIES ANY FURTHER QUESTIONS. PATIENT IS READY FOR DC. AT BEDSIDE TO TAKE PATIENT HOME. WILL CALL FOR WHEELCHAIR.
[2017-01-09 08:55] VITALS: BP 149/75
--- NOTE | 2017-01-09 09:00 | NUR ---
PATIENT GONE FOR DC
--- NOTE | 2017-01-10 14:14 | CN ---
PATIENT NAME:SATURNINO SANDOVAL DARRELL MEDICAL RECORD: [id number] : 31 LOCATION:D. D.2106 ADMIT DATE: 01/07/17 ACCOUNT: [id number] CONSULTING PHYSICIAN: ALESHA SHAH MD REFERRING PHYSICIAN: ADAL DALTON MD DATE OF CONSULTATION: 01/07/2017 CARDIOLOGY CONSULTATION DATE OF SERVICE: 01/07/2017 DIAGNOSES: 1. Angina. 2. Shortness of breath - dyspnea on exertion. 3. Recent flu. 4. Recent bronchitis. 5. Recent non-Q-wave myocardial infarction. 6. Coronary artery disease. 7. Previous percutaneous transluminal coronary angioplasty stent. 8. Hypertension. 9. Hyperlipidemia. HISTORY OF PRESENT ILLNESS: This is a gentleman who was recently in the hospital, diagnosed with flu and bronchitis. He presents with continued shortness of breath. He had a non-Q-wave myocardial infarction with increased troponin the last admission; however, he was not cath'd due to being flu positive. He has continued to have symptomatology as well as chest pain. His EKG is with no acute changes. PHYSICAL EXAMINATION: GENERAL APPEARANCE: Well-nourished, well-developed, appears stated age. Level of distress, comfortable. PSYCHIATRIC: Mental status, alert, normal affect. Orientation, oriented to time, place and person. EYES: Lids and conjunctiva, noninjected. No discharge, no pallor. ENT: Lips, teeth, gums, normal dentition. Oropharynx, no cyanosis, no pallor. NECK: Carotid arteries, bilateral normal upstroke, no bruits, no thrills. JUGULAR VEINS: No jugular venous pressure or distention. CERVICAL LYMPH NODES: Nontender, nonenlarged. THYROID: Not enlarged. Nontender. No nodules. LUNGS: Respiratory effort, unlabored. CHEST: Normal curvature. No thoracic deformity. No chest wall tenderness. Percussion, resonant. Auscultation, clear. No wheezes, no rales, no rhonchi. CARDIOVASCULAR: Precordial exam, nondisplaced. No heaves or pericardial thrills. Rate and rhythm, regular. Heart sounds, normal S1, normal S2. No S3, no gallop, no rub. Systolic murmur, not heard. Diastolic murmur, not heard. EXTREMITIES: No cyanosis, no edema. Peripheral pulses, full and equal in all extremities, except as noted. No bruits appreciated. ABDOMEN: Soft, nondistended. Normal aorta. No bruit. Nontender. No masses. Liver, nontender, no hepatomegaly. Spleen, nontender, no splenomegaly. MUSCULOSKELETAL: No joint tenderness. No joint swelling. No erythema. NEUROLOGICAL: Normal gait, normal strength, normal tone. SKIN: Warm and dry. OVERALL IMPRESSION: Anginal symptomatology. He has a component of bronchitis CONSULT REPORT [id number] SATURNINO SANDOVAL DARRELL as well as mild heart failure. We will give him IV Lasix. Plan for cardiac catheterization in the near future. TRANSINT:[id number] Voice Confirmation ID: [id number] DOCUMENT ID: [id number] ALESHA SHAH MD at 1414 CC: [id number] DICTATION DATE: 01/07/171106 DIGITAL STRATEGIST: 01/07/17 1118 DIS IN 01/09/17 [place] [address] [place] [address]
--- NOTE | 2017-01-10 14:14 | OP ---
PATIENT NAME: SATURNINO SANDOVAL DARRELL MEDICAL RECORD: [id number] :[birth year] LOCATION:D.M2 D.2106 ADMISSION DATE:01/07/17 SURGEON: ALESHA SHAH MD DATE OF OPERATION: 01/08/2017 PROCEDURES: 1. PTCA stent to LAD diagonal. 2. Left heart catheterization. 3. Selective coronary angiography. 4. Left ventriculogram. INDICATION: Angina and coronary artery disease. PROCEDURE IN DETAIL: After informed consent was obtained and after a detailed explanation of risks, benefits as well as alternative therapies, the patient elected to proceed with angiogram and angioplasty. The right radial area was prepped and draped in normal sterile fashion. The right radial artery was cannulated via modified Seldinger technique with placement of 6-Tongan sheath. All catheters exchanged through this sheath. FINDINGS: Left ventriculogram was performed in standard 30-degree ZELAYA view, reveals preserved cardiac wall motion, ejection fraction 50%. SELECTIVE CORONARY ANGIOGRAPHY: 1. Left main showed no significant angiographic disease. 2. Left anterior descending is patent; however, there is a very large diagonal system with 90% stenosis times 2. 3. Left circumflex has moderate irregularities, but no flow-limiting stenosis. 4. Right coronary artery is chronically totally occluded, fills via left to right collaterals. PTCA STENT OF THE LAD DIAGONAL: The stents used were 2.5 x 22 and 2.5 x 12 both Integrity stents. Result was 0% residual stenosis. OVERALL IMPRESSION: Successful percutaneous transluminal coronary angioplasty stent of the left anterior descending diagonal going from 90% initial stenosis to 0% residual. TRANSINT:[id number] Voice Confirmation ID: [id number] DOCUMENT ID: [id number] ALESHA SHAH MD at 1414 CC: [id number] DICTATION DATE: 01/08/17 1253 THREAD GRINDER: 01/08/17 1310 DIS IN 01/09/17 [place] [id number]
--- NOTE | 2017-01-10 14:14 | EC ---
PATIENT:SATURNINO SANDOVAL DARRELL DATE OF SERVICE: 01/07/17 SEX: M MEDICAL RECORD: [id number] DATE OF : [birth year] LOCATION:D.M2 D.210 AGE OF PATIENT: 81 ADMISSION DATE: 01/07/17 REFERRING PHYSICIAN: INTERPRETING PHYSICIAN: ALESHA CASTELLANO MD ECHOCARDIOGRAM REPORT ECHO CHARGES 5 ECHO LIMITED CLINICAL DIAGNOSIS: SOB HX OF CAD/STENTS ECHOCARDIOGRAPHIC MEASUREMENTS (adult normal given) AC root (d.<3.7cm) 4.7 cm LV Septum d (<1.2 cm> 1.8 cm Valve Excursion 1.3 cm LV Septum (systole) 2.2 cm Left Atria (s.<4.0cm> 5.1 cm LVPW d(<1.2cm) 1.8 cm RV (d.<2.3cm) 4.0 cm LVPW (sytole) 2.4 cm LV diastole(<5.6CM) 5.1 cm MV E-F(>70mm/sec) cm LV systole 3.1 cm LVOT Diameter cm MV exc.(>10mm) cm Est.ejection fraction (50-75%) % Pericardial Effusion N DOPPLER: LVIT cm/sec A cm/sec E cm/sec LA cm/sec RVSP 81 mmHg LVOT cm/sec AOP1/2T m/s Asc. Ao cm/sec RVOT cm/sec RA cm/sec PA cm/sec AV Gradient Peak mmHg AV Mean mmHg AV Area cm MV Gradient Peak mmHg MV Mean mmHg MV Area cm COMMENTS: Retrofit Installer: Meghna COLLINS Superintendent Radio Communications: Annmarie Castellano TAPE# PACS DATE OF SERVICE: 01/07/2017 FINDINGS: 1. Left ventricular chamber size is within normal limits. Left ventricular systolic function is normal. Overall ejection fraction estimated at 60%. 2. Left atrium is enlarged at 5.1 cm. Right atrium and right ventricle chamber sizes are as well moderately dilated. 3. Valvular structures have normal structure and motion. 4. Doppler interrogation reveals moderate mitral regurgitation, moderate tricuspid regurgitation, no other valvular insufficiency or stenosis, but ECHOCARDIOGRAM REPORT [id number] SATURNINO SANDOVAL DARRELL pulmonary systolic pressure is markedly elevated and estimated at 81 mmHg. 5. No evidence of pericardial effusion or left ventricular thrombus. TRANSINT:[id number] Voice Confirmation ID: [id number] DOCUMENT ID: [id number] ALESHA CASTELLANO MD at 1414 CC: [id number] DICTATION DATE: 01/08/17 1158 RECORDING STUDIO SET UP WORKER: 01/08/17 1242 DIS IN 01/09/17 [facility] [address] [place] [address]
== END 2017-01-09 10:16 | disposition home or self-care (01) | DRG 248 ==
LOC: D.ER 07:42 → D.M2 11:18
PROVIDERS: Family Medicine; Internal Medicine Interventional Cardiology; ADMIT Emergency Medicine
PROC: B2111ZZ Fluoroscopy of Multiple Coronary Arteries using Low Osmolar Contrast (ICD-10-PCS; 2017-01-08)
PROC: B2151ZZ Fluoroscopy of Left Heart using Low Osmolar Contrast (ICD-10-PCS; 2017-01-08)
PROC: 02703EZ Dilation of Coronary Artery, One Artery with Two Intraluminal Devices, Percutaneous Approach (ICD-10-PCS; principal; 2017-01-08 13:00)
PROC: 4A023N7 Measurement of Cardiac Sampling and Pressure, Left Heart, Percutaneous Approach (ICD-10-PCS; 2017-01-08 13:00)
DX: I21.4 Non-ST elevation (NSTEMI) myocardial infarction (principal); I50.33 Acute on chronic diastolic (congestive) heart failure; I25.2 Old myocardial infarction; I25.119 Atherosclerotic heart disease of native coronary artery with unspecified angina pectoris; I11.0 Hypertensive heart disease with heart failure; E78.5 Hyperlipidemia, unspecified; Z95.5 Presence of coronary angioplasty implant and graft; Z72.0 Tobacco use

== ENCOUNTER 2017-04-29 05:16 | Inpatient (IN) | payer MEDICARE, BC ==
[~2017-04-29] VITALS: Ht 170.2 cm; Wt 68.1 kg
--- NOTE | ~2017-04-29 | EC ---
PATIENT:SATURNINO SANDOVAL DATE OF SERVICE: 04/29/17 SEX: M MEDICAL RECORD: [id number] DATE OF : 33 LOCATION:[place] [address] AGE OF PATIENT: 82 ADMISSION DATE: 04/29/17 REFERRING PHYSICIAN: INTERPRETING PHYSICIAN: ALESHA CASTELLANO MD ECHOCARDIOGRAM REPORT ECHO CHARGES 4 ECHO COMPLETE CLINICAL DIAGNOSIS: CHF ECHOCARDIOGRAPHIC MEASUREMENTS (adult normal given) AC root (d.<3.7cm) 3.2 cm LV Septum d (<1.2 cm> 1.1 cm Valve Excursion 1.6 cm LV Septum (systole) 1.9 cm Left Atria (s.<4.0cm> 4.5 cm LVPW d(<1.2cm) 1.0 cm RV (d.<2.3cm) 2.9 cm LVPW (sytole) 1.3 cm LV diastole(<5.6CM) 6.0 cm MV E-F(>70mm/sec) cm LV systole 4.6 cm LVOT Diameter 1.9 cm MV exc.(>10mm) cm Est.ejection fraction (50-75%) % Pericardial Effusion N DOPPLER: LVIT cm/sec A cm/sec E 127 cm/sec LA cm/sec RVSP 66.0 mmHg LVOT 89.0 cm/sec AOP1/2T m/s Asc. Ao 104 cm/sec RVOT 44.0 cm/sec RA cm/sec PA 57.0 cm/sec AV Gradient Peak 4.3 mmHg AV Mean 2.2 mmHg AV Area 3.6 cm MV Gradient Peak 7.2 mmHg MV Mean 3.0 mmHg MV Area cm COMMENTS: Drywall Carrier: 1 ALLEN STOUTOE Winder Fixer: 1 Dr. Castellano TAPE# PACS DATE OF SERVICE: 04/30/2017 Echocardiogram FINDINGS: 1. Left ventricular chamber size is dilated. Left ventricular systolic function is mild to moderately reduced, overall ejection fraction of 35% to 40%. 2. Left atrium is enlarged at 4.5 cm. Right atrium and right ventricular chamber sizes are within normal limits. 3. Valvular structures have normal structure and motion. ECHOCARDIOGRAM REPORT [id number] SATURNINO SANDOVAL 4. Doppler interrogation reveals severe mitral regurgitation, moderate tricuspid regurgitation, no other valvular insufficiency or stenosis. Pulmonary systolic pressure is elevated estimated at 66 mmHg. 5. No evidence of pericardial effusion or left ventricular thrombus. TRANSINT:[id number] Voice Confirmation ID: [id number] DOCUMENT ID: [id number] ALESHA CASTELLANO MD at 1153 CC: [id number] DICTATION DATE: 05/01/17 1221 GORING CUTTER: 05/01/17 1237 DIS IN 05/01/17 [place] [id number] [place] [id number]
--- NOTE | ~2017-04-29 | HEMODYNAMI ---
PATIENT:SATURNINO SANDOVAL MEDICAL RECORD: [id number] : 31 LOCATION:[facility] D.CV07 ADMISSION DATE: 04/29/17 Generatedon:05/01/201711:58 Patient name: SATURNINO SANDOVAL Patient #: [id number] SSN: : 1935 Date of study: Page: Of Hemodynamic Procedure Report Patient Data Patient Demographics First Name: SATURNINO Gender: Male Last Name: LORI : 1935 Middle Initial: CHALINO Age: 82 year(s) Patient #: [id number] Race: Additional ID: [id number] Contact details Address: [address] [place] [address] State: [place] City: [facility] Zip code: [address] Past Medical History History of disease Date Diagnosis Comments CAD PVD Allergies: No known allergies Admission Admission Data Admission Date: 04/29/2017 Admission Time: 6:51 Room #: D.CV07 Procedure Procedure Types Cath Procedure Diagnostic Procedure LHC LHC w/Coronaries Procedure Description Procedure Staff Name Function Eliecer Castellano MD Performing Physician Shelli Solis RT Monitor Lawrence Arauz RN Nurse Soo Novak RT Scrub Hemodynamics Rest Pre Cath Intra NCS Post Cath Procedure Log Time Note 11:37:29 Shelli Solis RT(R) sent for patient. Start room use. 11:37:30 Time tracking: Regular hours 11:37:33 Plan of Care:Hemodynamics will remain stable., Cardiac rhythm will remain stable., Comfort level will be maintained., Respiratory function will remain adequate., Patient/ family verbilizes understanding of procedure., Procedure tolerated without complication., Recovers from procedure without complications.. 11:40:33 Patient received from CVICU to CCL 1 Alert and oriented. Tansferred to table in Supine position. 11:42:36 Warm blankets applied, and dong hugger turned on for patient comfort. 11:45:23 PATIENT WOULD NOT LAY FLAT ON TABLE. PAGED DR CASTELLANO. 11:57:44 DR CASTELLANO CANCELLED PROCEDURE 11:57:55 Patient transfered to [facility] with Bed. Signature Audit [place] Stage Time Signature Unsigned Intra-Procedure 05/01/2017 Shelli 11:58:05 AM Counts RT(R) Signatures Monitor : Shelli Signature : Counts RT Date : Time : [address] [address]
--- NOTE | ~2017-04-29 | CN ---
PATIENT NAME:SATURNINO YO MEDICAL RECORD: [id number] : 31 LOCATION:[facility].CV07 ADMIT DATE: 04/29/17 ACCOUNT: [id number] CONSULTING PHYSICIAN: ALESHA SHAH MD REFERRING PHYSICIAN: TIFFANY BURRIS MD DATE OF CONSULTATION: 04/30/2017 CARDIOLOGY CONSULT DIAGNOSES: 1. Unstable angina. 2. Coronary artery disease. 3. Previous percutaneous transluminal coronary angioplasty stent 4. Pneumonia. 5. Chronic obstructive pulmonary disease. 6. Hypertension. 7. Hyperlipidemia. 8. Shortness of breath/dyspnea on exertion. HISTORY OF PRESENT ILLNESS: Mr. Yo presents with shortness of breath, dyspnea on exertion as well as chest pain. He had very significant lateral EKG changes. His last PTCA stent was in December of 2016 with a bare metal stent to the left circumflex. PHYSICAL EXAMINATION: GENERAL APPEARANCE: Well-nourished, well-developed, appears stated age. Level of distress, comfortable. PSYCHIATRIC: Mental status, alert, normal affect. Orientation, oriented to time, place and person. EYES: Lids and conjunctiva, noninjected. No discharge, no pallor. ENT: Lips, teeth, gums, normal dentition. Oropharynx, no cyanosis, no pallor. NECK: Carotid arteries, bilateral normal upstroke, no bruits, no thrills. JUGULAR VEINS: No jugular venous pressure or distention. CERVICAL LYMPH NODES: Nontender, nonenlarged. THYROID: Not enlarged. Nontender. No nodules. LUNGS: Respiratory effort, unlabored. CHEST: Normal curvature. No thoracic deformity. No chest wall tenderness. Percussion, resonant. Auscultation, clear. No wheezes, no rales, no rhonchi. CARDIOVASCULAR: Precordial exam, nondisplaced. No heaves or pericardial thrills. Rate and rhythm, regular. Heart sounds, normal S1, normal S2. No S3, no gallop, no rub. Systolic murmur, not heard. Diastolic murmur, not heard. EXTREMITIES: No cyanosis, no edema. Peripheral pulses, full and equal in all extremities, except as noted. No bruits appreciated. ABDOMEN: Soft, nondistended. Normal aorta. No bruit. Nontender. No masses. Liver, nontender, no hepatomegaly. Spleen, nontender, no splenomegaly. MUSCULOSKELETAL: No joint tenderness. No joint swelling. No erythema. NEUROLOGICAL: Normal gait, normal strength, normal tone. SKIN: Warm and dry. REVIEW OF SYSTEMS: The patient reports easy bruising but reports no swollen glands. The patient reports no fever, no night sweats, no significant weight gain, no significant weight loss. No significant exercise tolerance. The patient reports no dry eyes, no irritation, no vision change. Patient reports no difficulty hearing and no ear pain. Patient reports no frequent nose bleeds or nose and sinus problems. Patient reports on arm pain on exertion. No CONSULT REPORT [id number] SATURNINO YO shortness of breath while lying down. No history of heart murmur. Patient reports no cough, no wheezing or coughing up blood. Patient reports no abdominal pain, no vomiting. Normal appetite. No diarrhea and not vomiting blood. No nausea and no constipation. Patient reports no incontinence. No difficulty urinating. No hematuria. No increased frequency. Patient reports no muscle aches. No weakness, no arthralgias, no back pain. No swelling of the extremities. Patient reports no abnormal mole, no jaundice, no rashes. Reports no loss of consciousness. No weakness and no numbness. No seizures, dizziness, or headaches. The patient reports no depression, no sleep disturbance, feeling safe in a relationship and no alcohol abuse. Patient reports on fatigue. Reports no runny nose or sinus pressure. No itching, no hives, and no frequent sneezing. OVERALL IMPRESSION: COPD/pneumonia with concomitant unstable angina and significant EKG changes. We will proceed with coronary angiography in the a.m. Further care depends upon the findings of the angiography. TRANSINT:[id number] Voice Confirmation ID: [id number] DOCUMENT ID: [id number] ALESHA SHAH MD at 1153 CC: [id number] DICTATION DATE: 04/30/17 1041 AIR PLANT ENGINEER: 04/30/17 1110 DIS IN 05/01/17 [place] [address] [place] [id number]
--- NOTE | ~2017-04-29 | CN ---
PATIENT NAME:SATURNINO SANDOVAL MEDICAL RECORD: [id number] : 31 LOCATION:[facility].CV07 ADMIT DATE: 04/29/17 ACCOUNT: [id number] CONSULTING PHYSICIAN: RADHA FRANCO MD REFERRING PHYSICIAN: TIFFANY BURRIS MD DATE OF CONSULTATION: 05/01/2017 IDENTIFYING DATA: The patient is 82 years old and he was admitted to the hospital secondary to shortness of breath. CHIEF COMPLAINT: Agitation. HISTORY OF PRESENT ILLNESS: The patient was given a large dose of Solu-Medrol. He has been very agitated and is threatening toward the hospital staff. He is delusional and thinks that he is in his own house. His is with him and reports that he has had significant cognitive slippage prior to this event. The patient has almost no insight about his situation. MENTAL STATUS EXAMINATION: The patient is awake, alert, and oriented to person and place, but not to time or situation. His mood is angry. His affect is constricted. Thought processes are circumstantial. Memory, concentration, and abstraction abilities are at least moderately impaired and he denies any active intent to harm himself or others as well as overt psychotic symptoms. 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 2. Delirium secondary to multiple factors including steroids. PLAN: At this time, the patient is significantly aggressive and delusional and cannot be managed in a rehab setting or at home by his elderly , who is clearly intimidated by his physical prowess. I would recommend he be transferred to the geropysch unit for ongoing treatment and evaluation. I expect, he will improve without steroids, but there is probably a pretty significant underlying dementia present. He seems to be primarily angry that his house which he is pointing is to another part of the hospital is his and somebody is trying to take it him. TRANSINT:[id number] Voice Confirmation ID: [id number] DOCUMENT ID: [id number] RADHA FRANCO MD at 1348 CC: [id number] DICTATION DATE: 05/01/17 1600 BIOPHYSICS SCIENTIST: 05/01/17 1614 DIS IN 05/01/17 [place] [id number] [place] [address]
[~2017-04-29 05:16] MED LIST changes: +ASPIRIN EC81 M1 PO; -PRAVACHOL40 MG PO; +PRAVACHOL40 MG PT
[2017-04-29 05:56] LABS: BASOPHILS 0.3 % (0-2); EOSINOPHILS 1.4 % (0-7); HEMATOCRIT 40.3 % (42.0-54.0); HEMOGLOBIN 12.9 g/dL (13.5-17.5); IMMATURE GRANULOCYTES 0.2 % (0-5); LYMPHOCYTES 10.3 % (15-50); MCH 29.7 pg (26.0-34.0); MCV 92.9 fL (80.0-100.0); MEAN PLATELET VOLUME 9.3 fL (7.4-10.4); NEUTROPHILS 80.8 % (40-80); RBC 4.34 10x6/uL (4.20-6.10); RDW 14.3 % (11.5-14.5); WBC 14.6 10x3/uL (4.8-10.8)
[2017-04-29 06:00] LABS: PLATELET COUNT 210 10x3/uL (130-400)
[2017-04-29 06:13] LABS: ALBUMIN 3.6 g/dL (3.4-5.0); ALKALINE PHOSPHATASE 70 U/L (46-116); ALT (SGPT) 26 U/L (10-68); BILIRUBIN - TOTAL 0.34 mg/dL (0.2-1.3); CALC OSMOLALITY 285 mosm/kg (275-300); CALCIUM 9.2 mg/dL (8.5-10.1); CARBON DIOXIDE 25.6 mmol/L (21.0-32.0); CHLORIDE - SERUM 104 mmol/L (98-107); CREATININE - SERUM 1.5 mg/dL (0.6-1.3); GLUCOSE 143 mg/dL (74-106); POTASSIUM - SERUM 4.5 mmol/L (3.5-5.1); PROTEIN - SERUM 7.3 g/dL (6.4-8.2); SODIUM 138 mmol/L (136-145); UREA NITROGEN 35 mg/dL (7-18); eGFR NON AFRICAN AMERICAN 47 mL/min (90-120)
[2017-04-29 06:23] LABS: CKMB 1.6 U/L (0.0-3.6); CREATINE KINASE 52 UL (21-232); PRO BNP 6261 pg/mL (0-450); TROPONIN-I 0.018 ng/mL (0.000-0.060)
[2017-04-29 11:29] LABS: CREATINE KINASE 50 UL (21-232); TROPONIN-I < 0.017 ng/mL (0.000-0.060)
[2017-04-29 14:41] LABS: CKMB 1.5 U/L (0.0-3.6); CREATINE KINASE 54 UL (21-232)
[2017-04-29 14:43] LABS: TROPONIN-I < 0.017 ng/mL (0.000-0.060)
[2017-04-29 19:50] LABS: CREATINE KINASE 74 UL (21-232)
[2017-04-29 20:01] LABS: TROPONIN-I 0.017 ng/mL (0.000-0.060)
[2017-04-29 23:35] VITALS: BP 160/78; Ht 170.2 cm; Wt 68.1 kg
[2017-04-30] VITALS (21 sets, daily range): BP systolic 115–151; BP diastolic 51–83
[2017-04-30 07:03] LABS: ALBUMIN 3.7 g/dL (3.4-5.0); ANION GAP 16.1 mmol/L (8-16); BILIRUBIN - TOTAL 0.54 mg/dL (0.2-1.3); CALCIUM 9.7 mg/dL (8.5-10.1); CARBON DIOXIDE 24.9 mmol/L (21.0-32.0); CREATININE - SERUM 1.7 mg/dL (0.6-1.3); PROTEIN - SERUM 7.5 g/dL (6.4-8.2)
[2017-04-30 07:04] LABS: HEMATOCRIT 39.3 % (42.0-54.0); HEMOGLOBIN 12.5 g/dL (13.5-17.5); MCH 29.4 pg (26.0-34.0); MCHC 31.8 g/dL (31.0-37.0); MCV 92.5 fL (80.0-100.0); MEAN PLATELET VOLUME 9.8 fL (7.4-10.4); PLATELET COUNT 242 10x3/uL (130-400); RBC 4.25 10x6/uL (4.20-6.10); RDW 14.6 % (11.5-14.5); WBC 23.9 10x3/uL (4.8-10.8)
[2017-04-30 08:11] LABS: LYMPHOCYTES 5 % (15-50); MONOCYTES 6 % (2-11); NEUTROPHILS 86 % (40-80); PLATELET ESTIMATE NORMAL
[2017-05-01] VITALS (14 sets, daily range): BP systolic 116–152; BP diastolic 65–92
[2017-05-01 05:13] LABS: BASOPHILS 0 % (0-2); EOSINOPHILS 0 % (0-7); HEMATOCRIT 38.7 % (42.0-54.0); HEMOGLOBIN 12.3 g/dL (13.5-17.5); IMMATURE GRANULOCYTES 0.4 % (0-5); MCH 29.9 pg (26.0-34.0); MCHC 31.8 g/dL (31.0-37.0); MCV 93.9 fL (80.0-100.0); MEAN PLATELET VOLUME 10.1 fL (7.4-10.4); MONOCYTES 4.2 % (2-11); NEUTROPHILS 93.4 % (40-80); PLATELET COUNT 268 10x3/uL (130-400); RBC 4.12 10x6/uL (4.20-6.10); RDW 14.9 % (11.5-14.5); WBC 29.2 10x3/uL (4.8-10.8)
[2017-05-01 05:34] LABS: ALBUMIN 3.7 g/dL (3.4-5.0); ANION GAP 19.7 mmol/L (8-16); BILIRUBIN - TOTAL 0.5 mg/dL (0.2-1.3); CALCIUM 9.1 mg/dL (8.5-10.1); CARBON DIOXIDE 23.3 mmol/L (21.0-32.0); PROTEIN - SERUM 7.4 g/dL (6.4-8.2)
== END 2017-05-01 16:23 | disposition short-term general hospital (02) | DRG 291 ==
LOC: D.ER 05:16 → D.CVICU 06:51 → D.M2 06:51 → D.EDHOLD 06:51 → D.M2 20:39 → D.CVICU 22:13 → D.EDHOLD 22:21 → D.CVICU 05-01 16:23
PROVIDERS: Family Medicine
DX: I11.0 Hypertensive heart disease with heart failure (principal); J18.9 Pneumonia, unspecified organism; J44.0 Chronic obstructive pulmonary disease with (acute) lower respiratory infection; J44.1 Chronic obstructive pulmonary disease with (acute) exacerbation; N17.9 Acute kidney failure, unspecified; F02.81 Dementia in other diseases classified elsewhere, unspecified severity, with behavioral disturbance; F05 Delirium due to known physiological condition; I50.23 Acute on chronic systolic (congestive) heart failure; I25.110 Atherosclerotic heart disease of native coronary artery with unstable angina pectoris; Z95.5 Presence of coronary angioplasty implant and graft; E78.5 Hyperlipidemia, unspecified; G30.1 Alzheimer's disease with late onset; K59.00 Constipation, unspecified

== ENCOUNTER 2017-05-01 16:42 | Inpatient (IN) | payer MEDICARE, BC ==
[~2017-05-01] VITALS: Ht 175.3 cm; Wt 70.8 kg
--- NOTE | ~2017-05-01 | PN ---
PATIENT:SATURNINO SANDOVAL MEDICAL RECORD: [id number] LOCATION:[facility] ADMISSION DATE: 05/01/17 PROGRESS NOTE DATE OF SERVICE: 05/09/2017 SUBJECTIVE: The patient's case was discussed with staff. He has no new complaint. OBJECTIVE: The patient is in good behavioral control with limited insight about his condition. He tolerates his medicines well. ASSESSMENT: No change in diagnoses. PLAN: Brief supportive and educational interventions were made. Fdc prognosis is guarded. TRANSINT:[id number] Voice Confirmation ID: [id number] DOCUMENT ID: [id number] RADHA FRANCO MD at 1921 CC: [id number] DICTATION DATE: 05/09/17 1411 INSIDE SALES COORDINATOR: 05/09/17 1427 DIS IN 05/09/17 [facility] [address] [place] [address]
--- NOTE | ~2017-05-01 | PSY ---
PATIENT NAME:SATURNINO SANDOVAL MEDICAL RECORD: [id number] : 31 LOCATION:[facility] ADMISSION DATE: 05/01/17 ACCOUNT: [id number] PSYCHIATRIC EVALUATION DATE OF EVALUATION: 05/02/17 IDENTIFYING DATA: This is the first [facility] admission for this 82-year-old white male. HISTORY OF PRESENT ILLNESS: This patient was originally admitted to the hospital on 04/29/2017 with shortness of breath and chest pain. He was admitted for cardiac workup. The patient is a patient of Dr. Steward. Following the admission, the patient was given a large dose of Solu-Medrol. He has subsequently been very agitated and threatening towards hospital staff, very uncooperative. An attempt was made to do a cardiac catheterization, but it could not be completed because of the patient's agitation. At the time of admission, the patient's reported the patient has been exhibiting mental status changes for some time. The patient's son interviewed separately by staff, seems to think that the current episode is a marked change for his father. At the time of assessment by psychiatry on the , the patient was oriented to person and place, but not as to situation. As of today, the patient is much more confused, being oriented only to person. The patient does not have a previous diagnosis of dementia, but he does have a known history of coronary artery disease. PAST MEDICAL HISTORY: As mentioned, the patient does have a past history of coronary artery disease. He also has a history of congestive heart failure, hypertension, recent acute kidney injury, and COPD. Because of severe agitation, the patient was admitted to [facility]. FAMILY HISTORY: Noncontributory from a psychiatric standpoint. SOCIAL HISTORY: The patient remains a smoker. He denies alcohol or drug use. He is . He has 2 sons. ALLERGIES: None listed. MENTAL STATUS: On interview, the patient is pleasant, but quite confused. He is disheveled in appearance. Mood is anxious. Affect is somewhat brittle. Speech is tangential, somewhat rambling. Content of thought is negative for clear cut psychosis, although the patient does not offer great deal about something that he thinks is wrong with his to the effect that she needs some kind of cooperation. On sensorium testing, the patient is oriented to person, but not as to place nor time. He shows impairment for intermediate and short-term recall. Concentration is very poor. DIAGNOSTIC IMPRESSION: AXIS I: Subacute delirium secondary to multiple factors, rule out vascular dementia. AXIS II: No diagnosis. AXIS III: Acute kidney injury, chronic obstructive pulmonary disease, congestive heart failure, coronary artery disease, hypertension. AXIS IV: Severe. AXIS V: 34. PLAN: 1. The patient is admitted for further medical and psychiatric workup. 2. Diet and activities as tolerated. 3. Daily supportive therapy. TRANSINT:[id number] Voice Confirmation ID: [id number] DOCUMENT ID: [id number] OTM HUSSEIN III, MD at 1142 CC: [id number] DICTATION DATE: 05/02/17 1155 CRUDE OIL TREATER: 05/02/17 1222 ADM IN [id number] [place] [address]
--- NOTE | ~2017-05-01 | PN ---
PATIENT:SATURNINO SANDOVAL MEDICAL RECORD: [id number] LOCATION:[facility] ADMISSION DATE: 05/01/17 PROGRESS NOTE DATE OF SERVICE: 05/07/2017 SUBJECTIVE: No new complaint. OBJECTIVE: The patient is overall doing well. He becomes agitated occasionally, but is easily redirected. On exam, mood is euthymic. Affect is bland. Speech is tangential. Content of thought is negative for suicidal ideation. The patient appears to have some delusional ideation. Sensorium shows no change. ASSESSMENT: No change in diagnosis. PLAN: 1. Maintain current treatment plan. 2. Anticipate discharge later this week. TRANSINT:[id number] Voice Confirmation ID: [id number] DOCUMENT ID: [id number] TOM HUSSEIN III, MD at 2048 CC: [id number] DICTATION DATE: 05/07/17 1123 SPECIAL PROCEDURE TECHNOLOGIST: 05/07/17 1227 ADM IN [id number] [place] [address]
--- NOTE | ~2017-05-01 | DS ---
PATIENT:SATURNINO SANDOVAL :31 MEDICAL RECORD: [id number] DISCHARGE SUMMARY ADMISSION DATE: 05/01/17 DISCHARGE DATE: 05/09/17 HISTORY: This was the first [facility] admission for this 82-year-old white male. The patient had originally been admitted to the medical floor with shortness of breath and chest pain. The patient had become agitated and threatening toward staff. The patient evidently had been exhibiting mental status changes for some time. Because of worsening behavior, the patient was transferred to [facility] when stable medically. For further details, please see previously dictated history. COURSE IN THE HOSPITAL: The patient was placed on Aricept 10 mg daily for symptoms of dementia. He was also placed on Geodon 20 mg b.i.d. for control of agitation. He was maintained on other routine medications including antihypertensives, Lasix, and aspirin. The patient showed good improvement, marked reduction in agitation. Family was consulted and will be seeking placement. FINAL DIAGNOSES: AXIS I: Vascular dementia. AXIS II: No diagnosis. AXIS III: Acute kidney injury, chronic obstructive pulmonary disease, congestive heart failure, coronary artery disease, and hypertension. AXIS IV: Moderate. AXIS V: 38. PLAN: 1. The patient will continue on all current medications. 2. Diet and activities as tolerated. 3. Follow up with your primary care physician. TRANSINT:[id number] Voice Confirmation ID: [id number] DOCUMENT ID: [id number] TOM HUSSEIN III, MD at 1341 CC: [id number] DICTATION DATE: 05/16/17 1214 TIE FASTENER: 05/16/17 1224 DIS IN 05/09/17 [id number] [place] [address]
--- NOTE | ~2017-05-01 | PN ---
PATIENT:SATURNINO SANDOVAL MEDICAL RECORD: [id number] LOCATION:[facility] ADMISSION DATE: 05/01/17 PROGRESS NOTE DATE OF SERVICE: 05/06/2017 SUBJECTIVE: No new complaint. OBJECTIVE: The patient scored a 13/13 on the [facility] Mental Status exam indicating very significant level of dementia. Telephone discussion was held with the patient's son Socrates. The patient's progress and treatment plan were discussed with him and the family does plan to take the patient back home at the time he is discharged. On exam, the patient's mood is pleasant and even upbeat. Affect is appropriate. Speech is somewhat tangential and circular. Content of thought is negative for overt psychosis. Sensorium unchanged. ASSESSMENT: No change in diagnosis. PLAN: 1. Maintain current medication. 2. Continue supportive therapy. TRANSINT:[id number] Voice Confirmation ID: [id number] DOCUMENT ID: [id number] TOM HUSSEIN III, MD at 1040 CC: [id number] DICTATION DATE: 05/06/17 1232 OCCUP THER: 05/06/17 1248 ADM IN [facility] [address] [place] [address]
--- NOTE | ~2017-05-01 | PN ---
PATIENT:SATURNINO SANDOVAL MEDICAL RECORD: [id number] LOCATION:[facility] ADMISSION DATE: 05/01/17 PROGRESS NOTE DATE OF SERVICE: 05/05/2017 SUBJECTIVE: No new complaint. OBJECTIVE: Staff note the patient is more pleasant this morning, but had active hallucinations last night. He stated that he could see "lightening" inside his room. He did require p.r.n.'s of Haldol and Ativan. Nicotine patch has been ordered. On exam, today, mood is somewhat perplexed. Affect is rather distant. Speech is tangential. Content of thought continues to exhibit moderate delusional ideation. Sensorium shows no change. ASSESSMENT: No change in diagnosis. PLAN: 1. Continue Geodon 20 mg b.i.d. 2. Continue other current medications. 3. Continue supportive therapy. TRANSINT:[id number] Voice Confirmation ID: [id number] DOCUMENT ID: [id number] TOM HUSSEIN III, MD at 1105 CC: [id number] DICTATION DATE: 05/05/17 1200 JUNIOR COPYWRITER: 05/05/17 1222 ADM IN [facility] [address] [id number]
--- NOTE | ~2017-05-01 | PN ---
PATIENT:SATURNINO SANDOVAL MEDICAL RECORD: [id number] LOCATION:[facility] ADMISSION DATE: 05/01/17 PROGRESS NOTE DATE OF SERVICE: 05/08/2017 SUBJECTIVE: No new complaint is offered. OBJECTIVE: The patient is continuing to do well, tolerating medications well. No further behavioral difficulties. On exam, mood is euthymic. Affect is bland. Speech is tangential. Content of thought unchanged. Sensorium unchanged. ASSESSMENT: No change in diagnosis. PLAN: 1. Maintain current treatment plan. 2. Anticipate discharge tomorrow. TRANSINT:[id number] Voice Confirmation ID: [id number] DOCUMENT ID: [id number] TOM HUSSEIN III, MD at 1021 CC: [id number] DICTATION DATE: 05/08/17 1143 ROUSTABOUT SUPERVISOR: 05/08/17 1201 DIS IN 05/09/17 [address] [place] [address]
[2017-05-01 17:19] VITALS: BP 138/73; BMI 21.4
[2017-05-01 21:22] VITALS: BP 120/60
[2017-05-02 06:09] LABS: BASOPHILS 0 % (0-2); EOSINOPHILS 0 % (0-7); HEMATOCRIT 41.4 % (42.0-54.0); HEMOGLOBIN 13.4 g/dL (13.5-17.5); IMMATURE GRANULOCYTES 0.3 % (0-5); LYMPHOCYTES 4.4 % (15-50); MCHC 32.4 g/dL (31.0-37.0); MCV 92.6 fL (80.0-100.0); MEAN PLATELET VOLUME 10.1 fL (7.4-10.4); NEUTROPHILS 88.3 % (40-80); PLATELET COUNT 241 10x3/uL (130-400); RBC 4.47 10x6/uL (4.20-6.10); WBC 23.6 10x3/uL (4.8-10.8)
[2017-05-02 06:37] LABS: ALBUMIN 3.9 g/dL (3.4-5.0); ANION GAP 16.6 mmol/L (8-16); BILIRUBIN - TOTAL 0.48 mg/dL (0.2-1.3); CALCIUM 9.9 mg/dL (8.5-10.1); CARBON DIOXIDE 25.7 mmol/L (21.0-32.0); CHOL - HDL RATIO 3.8 ratio (2.3-4.9); CREATININE - SERUM 1.7 mg/dL (0.6-1.3); LDL-HDL RATIO 1.6 ratio (1.5-3.5); POTASSIUM - SERUM 5.3 mmol/L (3.5-5.1); PROTEIN - SERUM 7.4 g/dL (6.4-8.2); THYROID STIMULATING HORMONE 0.82 uIU/mL (0.36-3.74)
[2017-05-02 09:20] VITALS: BP 125/70
[2017-05-02 11:17] VITALS: BMI 21.4
[2017-05-02 12:56] VITALS: Ht 175.3 cm; Wt 70.8 kg
[2017-05-02 20:52] VITALS: BP 122/49
[2017-05-03 10:50] VITALS: BP 128/67
[2017-05-03 20:33] VITALS: BP 120/57
[2017-05-04 06:00] LABS: BASOPHILS 0.1 % (0-2); EOSINOPHILS 1.6 % (0-7); HEMATOCRIT 42.1 % (42.0-54.0); HEMOGLOBIN 13.1 g/dL (13.5-17.5); IMMATURE GRANULOCYTES 0.5 % (0-5); LYMPHOCYTES 10.7 % (15-50); MCH 29.7 pg (26.0-34.0); MCHC 31.1 g/dL (31.0-37.0); MONOCYTES 12.1 % (2-11); PLATELET COUNT 232 10x3/uL (130-400); RBC 4.41 10x6/uL (4.20-6.10); RDW 14.7 % (11.5-14.5)
[2017-05-04 06:07] LABS: MCV 95.5 fL (80.0-100.0)
[2017-05-04 06:31] LABS: ALBUMIN 3.6 g/dL (3.4-5.0); ANION GAP 12.2 mmol/L (8-16); BILIRUBIN - TOTAL 0.33 mg/dL (0.2-1.3); CALCIUM 9.7 mg/dL (8.5-10.1); CREATININE - SERUM 1.8 mg/dL (0.6-1.3); POTASSIUM - SERUM 5.2 mmol/L (3.5-5.1); PROTEIN - SERUM 6.9 g/dL (6.4-8.2)
[2017-05-04 07:00] VITALS: BP 133/67
[2017-05-04 18:17] LABS: APPEARANCE CLEAR (CLEAR); BILIRUBIN NEGATIVE (NEGATIVE); COLOR YELLOW (YELLOW); GLUCOSE NEGATIVE (NEGATIVE); KETONE NEGATIVE (NEGATIVE); NITRITE NEGATIVE (NEGATIVE); PROTEIN TRACE mg/dL (NEGATIVE); SPECIFIC GRAVITY 1.015 (1.005-1.020); UROBILINOGEN NORMAL (NORMAL)
[2017-05-04 19:30] VITALS: BP 137/72
[2017-05-05 07:00] VITALS: BP 126/67
[2017-05-05 11:12] LABS: VITAMIN D 25 HYDROXY 22.8 ng/mL (30.0-100.0)
[2017-05-05 12:11] LABS: FOLATE (FOLIC ACID) - SERUM 7.2 ng/mL (>3.0)
[2017-05-05 19:43] VITALS: BP 113/55
[2017-05-06 03:10] LABS: RAPID PLASMA REAGIN Non Reactive (Non Reactive)
[2017-05-06 07:00] VITALS: BP 128/51
[2017-05-06 21:09] VITALS: BP 147/78; BP 178/87
[2017-05-07 12:02] VITALS: BP 150/84
[2017-05-08 02:12] VITALS: BP 155/55
[2017-05-08 10:08] VITALS: BP 142/72
[2017-05-08] MEDS ORDERED: MILK OF MAGNESI30 ML PO (11:37)
[2017-05-08] MEDS ORDERED: GEODON20 MG PO (11:37)
[2017-05-08] MEDS ORDERED: ARICEPT10 MG PO (11:37)
[2017-05-08] MEDS ORDERED: LINZESS145 MCG PO (11:37)
[2017-05-08 19:16] VITALS: BP 152/77
[2017-05-09 09:47] VITALS: BP 170/83
== END 2017-05-09 14:03 | disposition home or self-care (01) | DRG 884 ==
LOC: D.PSYCH 16:42
PROVIDERS: Family Medicine; Psychiatry & Neurology Psychiatry
DX: F01.51 Vascular dementia, unspecified severity, with behavioral disturbance (principal); F05 Delirium due to known physiological condition; N17.9 Acute kidney failure, unspecified; I11.0 Hypertensive heart disease with heart failure; I50.9 Heart failure, unspecified; I25.10 Atherosclerotic heart disease of native coronary artery without angina pectoris; Z95.5 Presence of coronary angioplasty implant and graft; E78.5 Hyperlipidemia, unspecified; J44.9 Chronic obstructive pulmonary disease, unspecified; I73.9 Peripheral vascular disease, unspecified

== ENCOUNTER 2017-05-20 09:31 | Inpatient (IN) | payer MEDICARE, BC ==
[2017-05-20] VITALS (36 sets, daily range): BP systolic 89–148; BP diastolic 36–93; BMI 22.8; BMI 27.1
[~2017-05-20] VITALS: Ht 172.7 cm; Wt 87.3 kg
--- NOTE | ~2017-05-20 | OP ---
PATIENT NAME: SATURNINO SANDOVAL MEDICAL RECORD: [id number] :31 LOCATION:[facility] ADMISSION DATE:05/20/17 SURGEON: ALESHA SHAH MD DATE OF OPERATION: 05/20/2017 PROCEDURE: 1. Left heart catheterization. 2. Selective coronary angiography. 3. Left ventriculogram. INDICATION: Angina and coronary artery disease. PROCEDURE IN DETAIL: After informed consent was obtained and after detailed explanation of risks, benefits as well as alternative therapies, the patient elected to proceed with angiogram and heart catheterization. The right femoral area had a preexisting sheath from peripheral intervention. All catheters exchanged through this sheath. FINDINGS: Left ventriculogram was performed in standard 30-degree ZELAYA view, reveals global hypokinesis, ejection fraction 35%. SELECTIVE CORONARY ANGIOGRAPHY: 1. Left main showed no significant angiographic disease. 2. Left anterior descending has a diagonal system with previously placed stents. There is a 95% in-stent restenosis. The diagonal system was larger than the LAD itself. 3. Left circumflex has kbac-id-tgudubla irregularities, but no flow-limiting stenosis. 4. Right coronary artery has no significant stenosis. OVERALL IMPRESSION: Significant stenosis of the LAD diagonal amenable to atherectomy and PTCA stent in the future. TRANSINT:[id number] Voice Confirmation ID: [id number] DOCUMENT ID: [id number] ALESHA SHAH MD at 1056 CC: [id number] DICTATION DATE: 05/21/17 0838 OVEN OPERATOR: 05/21/17 1123 ADM IN [id number] [place] [id number]
--- NOTE | ~2017-05-20 | OP ---
PATIENT NAME: SATURNINO SANDOVAL MEDICAL RECORD: [id number] :33 LOCATION:D.[facility] ADMISSION DATE:05/20/17 SURGEON: ALESHA SHAH MD DATE OF OPERATION: 05/20/2017 PROCEDURES: 1. Stent placement, iliac, right. 2. SIGNAL INTEGRITY ENGINEER iliac, right. 3. Aortofemoral runoff. 4. Abdominal aortography. INDICATION: Claudication and peripheral vascular disease. PROCEDURE IN DETAIL: After informed consent was obtained and after a detailed explanation of the risks, benefits as well as alternative therapies, the patient elected to proceed with angiogram and angioplasty. The right femoral area was prepped and draped in normal sterile fashion. Left femoral artery was prepped and draped in normal sterile fashion. Both were cannulated via modified Seldinger technique with placement of 6-[place] sheath. All catheters exchanged through this sheath. FINDINGS: The abdominal aortography was performed. The catheter was pulled down for aortofemoral runoff. Abdominal aortography reveals no significant abdominal aortic disease. No dissection or aneurysm formation. RIGHT LEG: A. Iliac: The common iliac has moderate irregularities. The external iliac has 80% stenosis. B. Femoral system: The common, superficial, and deep femoral have pbhf-si-recxpnwh irregularities, but no flow-limiting stenosis. C. Popliteal and infrapopliteal vessels were widely patent. LEFT LE. Iliac system: The common iliac is widely patent. The external iliac has a 70% to 80% stenosis in the mid vessel. 2. Femoral system: The common, superficial, and deep femoral have moderate irregularities, but no flow-limiting stenosis. 3. Popliteal and infrapopliteal vessels have good 3-vessel runoff to the foot. SIGNAL INTEGRITY ENGINEER STENT OF THE RIGHT ILIAC: We placed a 7 x 27 Cordis Maral stent. This caused a rupture of the vessel due to pushing the calcified plaque through the vessel. This was then occluded, attempted occlusion with a Viabahn stent. There was continued leaking despite high pressure inflation around the Viabahn stent. At that time Dr. Long was called for vascular surgery. A balloon was inflated successfully to achieve hemostasis with the balloon up from a left femoral approach. The patient was stabilized, had a stable heart rate and blood pressure when leaving the catheterization lab to go to the operating room to have operative repair of this vessel. TRANSINT:[id number] Voice Confirmation ID: [id number] DOCUMENT ID: [id number] OPERATIVE REPORT [id number] SATURNINO SANDOVAL, ALESHA GOODWIN at 1056 CC: [id number] DICTATION DATE: 05/21/17 0838 HEALTHCARE CONSULTING MANAGER: 05/21/17 1123 ADM IN [address] [place] [address]
--- NOTE | ~2017-05-20 | HEMODYNAMI ---
PATIENT:SATURNINO SANDOVAL MEDICAL RECORD: [id number] : 31 LOCATION:D.CAT ADMISSION DATE: 05/20/17 Generatedon:05/20/201712:42 Patient name: SATURNINO SANDOVAL Patient #: [id number] SSN: : 1935 Date of study: 05/20/2017 Page: Of Hemodynamic Procedure Report Patient Data Patient Demographics Procedure consent was obtained First Name: SATURNINO Gender: Male Last Name: LORI : 1935 [facility] Initial: CHALINO Age: 82 year(s) Patient #: [id number] Race: Additional ID: [id number] Contact details Address: [address] [place] [address] State: [place] City: [facility] Zip code: [address] Past Medical History History of disease Date Diagnosis Comments CAD PVD Allergies: No known allergies Admission Admission Data Admission Date: 05/20/2017 Admission Time: 9:31 Procedure Procedure Types Cath Procedure Diagnostic Procedure LHC LHC w/Coronaries Peripheral Cath Diagnostic Procedure Cath Peripheral Cdflw-Skjlwbj-Wti-Off Peripheral vascular Intervention Stent Stent Iliac w/plasty Initial Procedure Description Procedure Date Procedure Date: 05/20/2017 Procedure Start Time: 11:23 Procedure End Time: 12:39 Procedure Staff Name Function Eliecer Castellano MD Performing Physician Rosa De La Rosa RT Monitor Mariana Marrufo RT Scrub Lawrence Arauz RN Nurse Mika Marcano MD Additional personnel Procedure Data Cath Procedure Fluoroscopy Diagnostic fluoroscopy Total fluoroscopy Time: time: 17.1 min 17.1 min Diagnostic fluoroscopy Total fluoroscopy dose: 986 dose: 986 mGy mGy Contrast Material Contrast Material Type Amount (ml) Isovue 300 197 Entry Location Entry Primary Successful Side Size Upsize 1 Upsize Entry Closure Harrison ccessful Closure Location (Fr) (Fr) 2 (Fr) Remarks Device Remarks Femoral Right 5 Fr 6 Fr 8 Fr artery Mid-Length Femoral Left 6 Fr artery Short Diagnostic catheters Device Type Used For End Catheter Placement MULTIPACK 3DRC 5Fr Procedure catheter MULTIPACK JL 4.0 5Fr catheter MULTIPACK Pigtail 5 Fr Procedure catheter DIAGNOSTIC IMT 5Fr Procedure Catheter ([id number]) Procedure Complications Vascular - Dissection Procedure Medications Medication Administration Route Dosage 0.9% NaCl I.V. 100 ml/hr Oxygen NC 3 l/min Heparin Flush Bag added to field 2 bags (1000units/500ml NS) Lidocaine 2% added to field 20 Benadryl I.V. 50 mg Radial Cocktail added to field 1 syringe (Verapomil 2mg/Nitro 400mcg/Heparin 1500units) Refer to Anesthesia Notes for Sedation Medications Heparin Bolus I.V. 5000 units Integrilin (Bolus I.V. 6.2 ml 2mg/ml) Integrilin (Bolus wasted 3.8 ml 2mg/ml) Dopamine I.V. drip 10 mcg/kg/min (400mg/250ml D5W) Hemodynamics Rest Heart Rate: 53 (bpm) Snapshots Pre Cath Intra NCS Post Cath Vital Signs Time Heart Resp SPO2 etCO2 NIBP (mmHg) Rhythm Pain Sedation Rate (ipm) (%) (mmHg) Status Level (bpm) 10:51:51 51 19 100 38.8 162/79(137) NSR 0 (11) 10(A) , No pain 10:56:13 49 21 100 37.4 158/71(131) NSR 0 (11) 10(A) , No pain 11:00:31 59 19 100 0 157/78(131) NSR 0 (11) 10(A) , No pain 11:04:53 53 18 99 1.4 137/68(114) NSR 0 (11) 10(A) , No pain 11:09:01 47 18 99 29.9 137/66(112) NSR 0 (11) 10(A) , No pain 11:13:19 44 15 100 0 139/58(116) NSR 0 (11) 10(A) , No pain 11:17:35 46 18 99 29.9 134/65(106) NSR 0 (11) 10(A) , No pain 11:22:47 52 16 99 8.2 152/80(134) NSR 0 (11) 9(A) , No pain 11:27:09 57 25 84 15.6 104/60(76) NSR 0 (11) 9(A) , No pain 11:31:15 55 19 97 18.6 117/57(93) NSR 0 (11) 9(A) , No pain 11:35:24 54 17 97 16.4 125/58(97) NSR 0 (11) 9(A) , No pain 11:39:38 53 16 98 20.9 132/57(104) NSR 0 (11) 9(A) , No pain 11:43:56 63 21 98 0 104/51(79) NSR 0 (11) 10(A) , No pain 11:48:06 54 17 98 20.9 113/45(85) NSR 0 (11) 10(A) , No pain 11:52:12 47 19 100 16.4 56/31(41) NSR 0 (11) 10(A) , No pain 11:53:32 46 27 99 0 55/31(38) NSR 0 (11) 10(A) , No pain 11:54:38 41 26 98 0 55/32(42) NSR 0 (11) 10(A) , No pain 11:55:49 41 21 100 8.9 68/40(46) NSR 0 (11) 10(A) , No pain 11:57:15 40 7 100 20.9 73/44(59) NSR 0 (11) 10(A) , No pain 12:00:40 49 23 100 8.9 91/42(85) NSR 0 (11) 10(A) , No pain 12:01:39 54 24 100 0 Measuring NSR 0 (11) 10(A) , No pain 12:01:50 50 24 99 0 110/56(88) NSR 0 (11) 10(A) , No pain 12:02:49 48 17 98 0 Measuring NSR 0 (11) 10(A) , No pain 12:03:08 49 18 99 0 108/55(81) NSR 0 (11) 10(A) , No pain 12:04:07 46 23 0 Measuring NSR 0 (11) 10(A) , No pain 12:04:40 58 59 0 90/65(75) NSR 0 (11) 10(A) , No pain 12:05:39 73 10 0 Measuring NSR 0 (11) 10(A) , No pain 12:05:43 76 10 0 99/60(88) NSR 0 (11) 10(A) , No pain 12:06:43 96 27 0 Measuring NSR 0 (11) 10(A) , No pain 12:07:42 101 32 100 0 Measuring NSR 0 (11) 10(A) , No pain 12:08:42 94 29 99 0 117/79(98) NSR 0 (11) 10(A) , No pain 12:09:41 89 16 100 0 Measuring NSR 0 (11) 10(A) , No pain 12:09:53 92 16 100 0 137/79(102) NSR 0 (11) 10(A) , No pain 12:10:52 93 14 0 Measuring NSR 0 (11) 10(A) , No pain 12:11:13 94 16 100 0 145/79(106) NSR 0 (11) 10(A) , No pain 12:12:12 96 15 0 Measuring NSR 0 (11) 10(A) , No pain 12:12:33 109 15 100 0 144/83(109) NSR 0 (11) 10(A) , No pain 12:13:32 93 13 100 0 Measuring NSR 0 (11) 10(A) , No pain 12:13:53 141 10 100 0 149/85(104) NSR 0 (11) 10(A) , No pain 12:14:52 93 14 0 Measuring NSR 0 (11) 10(A) , No pain 12:15:15 113 14 100 0 138/82(110) NSR 0 (11) 10(A) , No pain 12:16:14 98 14 0 Measuring NSR 0 (11) 10(A) , No pain 12:16:33 98 14 100 0 141/85(112) NSR 0 (11) 10(A) , No pain 12:17:32 99 11 100 0 Measuring NSR 0 (11) 10(A) , No pain 12:17:52 95 11 100 0 155/83(98) NSR 0 (11) 10(A) , No pain 12:18:52 98 10 71 0 Measuring NSR 0 (11) 10(A) , No pain 12:19:16 99 10 100 0 136/78(97) NSR 0 (11) 10(A) , No pain 12:20:16 95 9 100 0 Measuring NSR 0 (11) 10(A) , No pain 12:20:36 91 10 100 0 135/76(94) NSR 0 (11) 10(A) , No pain 12:21:36 84 9 93 0 Measuring NSR 0 (11) 10(A) , No pain 12:21:56 86 9 100 0 132/72(98) NSR 0 (11) 10(A) , No pain 12:22:55 88 11 71 0 Measuring NSR 0 (11) 10(A) , No pain 12:23:16 87 10 100 0 128/73(106) NSR 0 (11) 10(A) , No pain 12:24:15 83 100 0 Measuring NSR 0 (11) 10(A) , No pain 12:24:34 87 100 0 145/76(95) NSR 0 (11) 10(A) , No pain 12:25:33 93 8 0 Measuring NSR 0 (11) 10(A) , No pain 12:25:58 91 9 100 0 125/73(101) NSR 0 (11) 10(A) , No pain 12:26:57 88 10 100 0 Measuring NSR 0 (11) 10(A) , No pain 12:27:14 88 11 100 0 122/73(93) NSR 0 (11) 10(A) , No pain 12:28:13 85 12 100 0 Measuring NSR 0 (11) 10(A) , No pain 12:28:29 86 12 100 0 125/71(94) NSR 0 (11) 10(A) , No pain 12:29:29 87 10 0 Measuring NSR 0 (11) 10(A) , No pain 12:29:45 85 10 100 0 125/73(97) NSR 0 (11) 10(A) , No pain 12:30:45 86 9 0 Measuring NSR 0 (11) 10(A) , No pain 12:31:03 87 9 100 0 121/68(98) NSR 0 (11) 10(A) , No pain 12:32:02 86 11 100 0 Measuring NSR 0 (11) 10(A) , No pain 12:32:21 87 11 100 0 120/68(91) NSR 0 (11) 10(A) , No pain 12:33:20 95 11 100 0 Measuring NSR 0 (11) 10(A) , No pain 12:33:51 100 0 No Cuff NSR 0 (11) 10(A) , No pain 12:34:50 0 No Cuff NSR 0 (11) 10(A) , No pain 12:35:36 0 No Cuff NSR 0 (11) 10(A) , No pain 12:36:35 0 Measuring NSR 0 (11) 10(A) , No pain 12:36:45 0 No Cuff NSR 0 (11) 10(A) , No pain 12:37:45 0 Measuring NSR 0 (11) 10(A) , No pain 12:37:55 0 No Cuff NSR 0 (11) 10(A) , No pain 12:38:54 0 Measuring NSR 0 (11) 10(A) , No pain 12:39:05 0 No Cuff NSR 0 (11) 10(A) , No pain Medications Time Medication Route Dose Verified Delivered Reason N otes Effectiveness by by 10:50:20 0.9% NaCl I.V. 100 ml/hr Lawrence Lawrence Per physician Davonte Arauz RN RN 10:50:31 Oxygen NC 3 l/min Lawrence Lawrence Per physician Davonte Arauz RN RN 10:50:46 Heparin Flush added 2 bags Lawrence Lawrence used for Bag to Davonte Arauz procedure (1000units/500ml [facility] RN RN NS) 10:50:58 Lidocaine 2% added 20ml vial Lawrence Lawrence for local to Davonte Arauz anesthetic field RN RN 10:53:49 Benadryl I.V. 50 mg Lawrence Lawrence Per physician Davonte Arauz RN RN 10:56:30 Radial Cocktail added 1 syringe Lawrence Lawrence used for (Verapomil to Lorigan Lorneelima procedure 2mg/Nitro field RN RN 400mcg/Heparin 1500units) 11:21:03 Refer to Lawrence Lawrence for sedation Anesthesia Notes Davonte Arauz for Sedation RN RN Medications 11:36:39 Heparin Bolus I.V. 5000 units Lawrence Lawrence for Davonte Arauz anticoagulation RN RN 11:37:17 Integrilin I.V. 6.2 ml Lawrence Lawrence for (Bolus 2mg/ml) Davonte Arauz antiplatelet RN RN therapy 11:40:41 Integrilin wasted 3.8 ml Lawrence Lawrence to sharp's (Bolus 2mg/ml) Davonte Arauz RN RN 11:57:29 Dopamine I.V. 10 Lawrencerancho Bravo For hypotension (400mg/250ml drip mcg/kg/min Davonte Arauz D5W) RN dial screw assembler Log Time Note 10:35:06 Rosa De La Rosa RT(R) sent for patient. Start room use. 10:44:14 Time tracking: Regular hours 10:44:17 Plan of Care:Hemodynamics will remain stable., Cardiac rhythm will remain stable., Comfort level will be maintained., Respiratory function will remain adequate., Patient/ family verbilizes understanding of procedure., Procedure tolerated without complication., Recovers from procedure without complications.. 10:44:22 Patient received from Pre/Post Procedure Room to CCL 2 Alert and oriented. Tansferred to table in Supine position. 10:44:23 Warm blankets applied, and dong hugger turned on for patient comfort. 10:44:23 Correct patient and procedure confirmed by team. 10:44:25 Signed procedure consent form obtained from patient. 10:44:25 ECG and BP/O2 sat monitors applied to patient. 10:50:20 0.9% NaCl 100 ml/hr I.V. was administered by Lawrence Arauz RN; Per physician; 10:50:31 Oxygen 3 l/min NC was administered by Lawrence Arauz RN; Per physician; 10:50:39 Vital chart was started 10:50:40 Baseline sample Acquired. 10:50:45 Rhythm: sinus rhythm 10:50:46 Heparin Flush Bag (1000units/500ml NS) 2 bags added to field was administered by Lawrence Arauz RN; used for procedure; 10:50:47 Full Disclosure recording started 10:50:58 Lidocaine 2% 20ml vial added to field was administered by Lawrence Arauz RN; for local anesthetic; 10:51:08 H&P Date Dictated: 05/14/2017 Within 30 days and on chart., H&P Addendum completed by physician on day of procedure. (MUST COMPLETE FOR ALL OUTPATIENTS). 10:51:09 Pre-procedure instructions explained to patient. 10:51:11 Family in waiting room. 10:51:13 Patient NPO since Midnight. 10:51:23 Patient allergic to No known allergies 10:51:27 Is the patient allergic to Iodine/contrast media? No. 10:51:29 Was the patient premedicated? Yes 10:51:59 Is patient on blood thinner?No 10:52:06 Patient diabetic? Yes. 10:52:08 If diabetic: On Metformin? No 10:52:25 Previous problem with sedation/anesthesia? Yes anesthesia 10:52:27 Snore? Yes 10:52:30 Sleep apnea? No 10:52:41 Airway obstruction? Yes Pnemonia 10:52:44 Dentures? No ? 10:53:03 Patient pain scale 0/10 ?. 10:53:10 IV patent on arrival in left forearm with 0.9% NaCl at [facility]. 10:53:20 Lab results completed and on chart. 10:53:25 Right Radial & Right Groin area was prepped with chlora-prep and draped in sterile fashion 10:53:25 Alarms reviewed by R. N. 10:53:26 Sharps counted by scrub and verified by R.N. 10:53:27 Physician paged 10:53:30 Physician arrived 10:53:49 Benadryl 50 mg I.V. was administered by Lawrence Arauz RN; Per physician; 10:56:30 Radial Cocktail (Verapomil 2mg/Nitro 400mcg/Heparin 1500units) 1 syringe added to field was administered by Lawrence Arauz RN; used for procedure; 10:56:48 Diagnostic Cath status Elective 11:16:18 --------ALL STOP TIME OUT------ 11:16:19 Final Timeout: patient, procedure, and site verified with staff and physician. All members of the team are in agreement. 11:16:22 Right Radial & Right Groin site verified by team. 11:16:26 Physical assessment completed. ASA score P 2 - A patient with mild systemic disease as per Eliecer Castellano MD. 11:16:36 Sedation plan: TIVA Medication:Propofol 11:16:39 Mika Marcano MD present and monitoring patient for TIVA. 11:17:03 Use device set Femoral Dx 11:18:30 ACIST Syringe (00954) opened to sterile field. 11:18:35 Bag Decanter (2002S) opened to sterile field. 11:18:37 Medline Cath Pack ([id number]) opened to sterile field. 11:18:39 DIAGNOSTIC WIRE .035 260cm J wire (865831) opened to sterile field. 11:18:41 ACIST Hand Control (73911) opened to sterile field. 11:18:42 ACIST Manifold (77298) opened to sterile field. 11:18:43 DIAGNOSTIC Multipack 5Fr catheter set ([id number]) opened to sterile field. 11:18:44 Tegaderm 4 x 4 (1626W) opened to sterile field. 11:21:03 Refer to Anesthesia Notes for Sedation Medications was administered by Lawrence Arauz RN; for sedation; 11:21:13 Procedure started. 11:23:49 Local anesthetic to right femoral artery with Lidocaine 2% by Eliecer Castellano MD.INITIAL ACCESS ONLY 11:24:01 A 5 Fr sheath was inserted into the Right Femoral artery 11:24:18 SHEATH 5FR [place] (JAC209) opened to sterile field. 11:25:48 GLIDE WIRE ANGLE 260cm (WL9200) opened to sterile field. 11:26:14 TORQUE DEVICE PLASTIC .038 ( TD01) opened to sterile field. 11:26:32 A MULTIPACK 3DRC 5Fr catheter was advanced over the wire and used for Procedure. 11:26:44 Catheter removed. 11:27:57 A MULTIPACK JL 4.0 5Fr catheter was advanced over the wire and used for . 11:28:05 Catheter removed. 11:29:15 A MULTIPACK Pigtail 5 Fr catheter was advanced over the wire and used for Procedure. 11:29:38 EF : 20 % 11:30:08 A 5 FrFr Pigtail catheter was inserted over the wire. 11:30:11 Abdominal angiogram w/ runoff was performed. 11:30:15 Left leg runoff performed. 11:30:17 Right leg runoff performed. 11:30:47 Catheter removed. 11:35:48 Sheath upsized to a 6 Fr Mid-Length. 11:36:39 Heparin Bolus 5000 units I.V. was administered by Lawrence Arauz RN; for anticoagulation; 11:36:53 Procedure type changed to Cath procedure, Diagnostic procedure, LHC, LHC w/Coronaries, Peripheral Cath Diagnostic Procedure, Cath Peripheral, Zxmpp-Rfxthmi-Xfm-Off, Peripheral vascular Intervention, Stent, Stent Iliac w/plasty Initial 11:37:17 Integrilin (Bolus 2mg/ml) 6.2 ml I.V. was administered by Lawrence Arauz RN; for antiplatelet therapy; 11:37:34 Inflation Number: 1 A IBAN 7 x 29 x 135 stent ([id number]) was prepped and advanced across the Mid Common Iliac, Left. The stent was deployed at 15 ALEXANDER for 5:10 (min:sec). 11:40:37 Inflation number: 2 The stent balloon was then re-inflated across the Mid Common Iliac, Left to 9 ALEXANDER for 3:00 (min:sec). 11:40:41 Integrilin (Bolus 2mg/ml) 3.8 ml wasted was administered by Lawrence Arauz RN; to sharp's; 11:42:15 SHEATH 6FR Brite Tip 35cm (159607P) opened to sterile field. 11:42:17 SHEATH 6Fr Prelude ([id number]) opened to sterile field. 11:42:18 INFLATOR Merit BasixCompak (OI7898) opened to sterile field. 11:42:35 Balloon removed over the wire. 11:43:14 Timer 1 started at 11:38 AM, stopped at 11:43 AM, duration 00:05:12 sec. 11:46:58 Timer 1 started at 11:43 AM, stopped at 11:46 AM, duration 00:03:00 sec. 11:47:09 Inflation number: 3 The stent balloon was then re-inflated across the Mid Common Iliac, Left to 9 ALEXANDER for 3:00 (min:sec). 11:47:[address] [place] (728157) opened to sterile field. 11:48:04 Sheath upsized to a 8 Fr. 11:50:26 VIABAHN 7 X 5 X 120 stent ([id number]) was deployed across Mid Common Iliac, Left . 11:51:41 Inflation number: 4 The stent balloon was then re-inflated across the Mid Common Iliac, Left to 9 ALEXANDER for 0:10 (min:sec). 11:54:28 Balloon removed over the wire. 11:55:12 Wire removed. 11:56:20 Left groin area was prepped with chlora-prep and draped in sterile fashion 11:57:29 Dopamine (400mg/250ml D5W) 10 mcg/kg/min I.V. drip was administered by Lawrence Arauz RN; For hypotension; 11:58:06 Local anesthetic to left femerol artery with Lidocaine 2% by Eliecer Castellano MD.ADDITIONAL ACCESS 11:58:23 A 6 Fr Short sheath was inserted into the Left Femoral artery 11:59:13 SHEATH 6Fr Prelude ([id number]) opened to sterile field. 12:00:04 A DIAGNOSTIC IMT 5Fr Catheter ([id number]) was advanced over the wire and used for Procedure. 12:00:22 A 6 FrFr IM catheter was inserted over the wire. 12:00:29 glidewire wire advanced. 12:08:37 Timer 1 started at 12:08 PM, stopped at 12:08 PM, duration 00:00:00 sec. 12:18:05 Timer 1 started at 12:10 PM, stopped at 12:18 PM, duration 00:07:51 sec. 12:19:25 Procedure ended.(Physican Out) 12:19:43 Left and Right sheath sutured 12::57 Fluoroscopy time 17.10 minutes. 12:21:11 Fluoroscopy dose: 986 mGy 12:21:11 Flurop Dose total: 986 12::41 Contrast amount:Isovue 300 197ml. 12::43 Sharps counted by scrub and verified by R.N. 12:22:01 left and right sheath was sutured in with 2`0. 12:22:17 Insertion/operative site no bleeding no hematoma. 12:22:28 Post Procedure Pulses reassessed and unchanged 12:22:36 Post-procedure physical assessment completed. ASA score P 3 - A patient with severe systemic disease as per Eliecer Castellano MD. 12:24:01 Post procedure rhythm: sinus tachycardia 12:24:27 Patient needs reinforcement of post procedure teaching. 12:26:00 Procedure and supply charges have been captured, reviewed, submitted and are correct. 12:32:34 Tegaderm 4 x 4 (1626W) opened to sterile field. 12:32:35 Tegaderm 4 x 4 (1626W) opened to sterile field. 12:32:35 Tegaderm 4 x 4 (1626W) opened to sterile field. 12:32:36 Tegaderm 4 x 4 (1626W) opened to sterile field. 12:38:55 Procedure Complication : Vascular - Dissection 12:39:00 Vital chart was stopped 12:39:01 See physician's report for complete and final results. 12:39:18 Report given to Other. 12:39:23 Patient transfered to Other with Stretcher. 12:39:25 Procedure ended. 12:39:25 Full Disclosure recording stopped 12:39:31 End room use (Document Last) Intervention Summary Intervention Notes Time ActionType Lesion and Equipment Action# Pressure Duration Attributes Used 11:37:34 Place stent Mid Common IBAN 7 x 1 15 05:10 Iliac, Left 29 x 135 stent ([id number]) 11:40:37 Reinflate Mid Common IBAN 7 x 2 9 03:00 stent Iliac, Left 29 x 135 balloon stent ([id number]) 11:47:09 Reinflate Mid Common IBAN 7 x 3 9 03:00 stent Iliac, Left 29 x 135 balloon stent ([id number]) 11:50:26 Deploy self Mid Common VIABAHN 7 X 1 expanding Iliac, Left 5 X 120 stent stent ([id number]) 11:51:41 Reinflate Mid Common IBAN 7 x 4 9 00:10 stent Iliac, Left 29 x 135 balloon stent ([id number]) Device Usage Item Name Manufacture Quantity Catalog Number Hospital Part Current Mini mal Lot# / Charge Number Stock Stock Serial# Code ACIST Acist 1 [id number] 551336 047844 827502 20 Syringe Medical (69927) Systems Inc Bag Decanter Microtek 1 2001S 403015 89159 329875 5 () Medical Inc. Medline Cath Cardinal 1 [id number] 641505 51041 033020 5 Pack Health ([id number]) DIAGNOSTIC [facility] [place] 1 254223 917500 057084 438997 30 WIRE .035 260cm J wire (436685) ACIST Hand Acist 1 83279 737619 573687 267329 5 Control Medical (24689) Systems Inc ACIST Acist 1 87913 866647 055354 422551 5 Manifold Medical (62712) Systems Inc DIAGNOSTIC Cardinal 1 [id number] 167904 92327 512774 30 Multipack Health 5Fr catheter set (YZ3743) Tegaderm 4 x 3M 5 1626W 453771 377230 614646 5 4 (1626W) SHEATH 5FR Terumo 1 DVY624 495825 102952 492579 40 [place] (BNX434) GLIDE WIRE Terumo 1 SZ3736 923289 880613 823655 5 ANGLE 260cm (IJ3781) TORQUE [place] 1 TD01 738112 571450 352284 5 DEVICE Scientific PLASTIC .038 ( TD01) MULTIPACK Cardinal 1 112136 5 3DRC 5Fr Health catheter MULTIPACK JL Cardinal 1 062925 5 4.0 5Fr Health catheter MULTIPACK Cardinal 1 232227 5 Pigtail 5 Fr Health catheter IBAN 7 x Cardinal 1 [id number] 302711 136460 5 29 x 135 Health stent ([id number]) SHEATH 6FR Cardinal 1 [id number] 717354 341922 413865 1 Brite Tip Health 35cm (621979B) SHEATH 6Fr Merit 2 [id number] 444907 581175 081034 5 Prelude Medical ([id number]) INFLATOR Merit 1 XD5442 512437 460894 641486 15 Merit Medical BasixCompak (GH3160) SHEATH 8FR [facility] [place] 1 807254 282482 618909 726314 5 [facility] Neal (948374) VIABAHN 7 X [place]. [place] 1 [id number] 962643 769484 815634 5 [id number] 5 X 120 stent ([id number]) DIAGNOSTIC [place] 1 [id number] 549868 598777 49861 5 IMT 5Fr Scientific Catheter ([id number]) Signature Audit [place] Stage Time Signature Unsigned Intra-Procedure 05/20/2017 Rosa De La Rosa 12:42:24 PM RT(R) Signatures Monitor : Rosa De La Rosa RT Signature : Date : Time : [facility] [address] [place] [id number]
--- NOTE | ~2017-05-20 | OP ---
PATIENT NAME: SATURNINO SANDOVAL MEDICAL RECORD: [id number] :31 LOCATION:[id number] ADMISSION DATE:05/20/17 SURGEON: ELDER MOORE MD DATE OF OPERATION: 05/20/2017 SURGEON: Elder Moore MD LEAD RADIATION THERAPIST: Ibrahima Perry MD ANESTHESIA: General endotracheal, Dr. Marcano and Dr. Moya. OPERATION PERFORMED: Emergency primary repair of external iliac artery. PREOPERATIVE DIAGNOSIS: Retroperitoneal hemorrhage postendovascular stenting of the right external iliac artery. POSTOPERATIVE DIAGNOSIS: Bleeding from the puncture site, right external iliac artery. INDICATION FOR OPERATION: Emergency retroperitoneal hemorrhage. FINDINGS AT OPERATION: Bleeding from the sheath site on the right in the retroperitoneum, distal external iliac artery. ESTIMATED BLOOD LOSS: 150 mL. CLINICAL NOTE: Mr. Sandoval is an 82-year-old patient who was undergoing cardiac catheterization and stenting of his right external iliac artery. I was called to the lab rep due to retroperitoneal hemorrhage. Anesthesia was already present and Dr. Marcano had intubated the patient, started a central line, and stabilized the patient. On the final arteriogram, a balloon was blown up in the stent with control of the hemorrhage. The patient was heparinized prior to this; therefore, he was stabilized and taken to the operating room. After informed consent from the son in [place] and here at the hospital, the patient was taken to the operating room and placed on table in supine position. A left radial A-line was started and secured. The sheaths and catheters were placed so that they could be controlled off the sterile field. The patient then underwent prepping and draping utilizing ChloraPrep and draped in a sterile fashion. An incision was made above the inguinal ligament and dissection was carried down to the fascia. The external fascia was identified as well as the inguinal ligament. An incision was made over the artery and vein and carried down to the sheath. The sheath was out of the artery and was removed from the field. There was no bleeding from the artery. Further dissection caudally and proximally demonstrated a stent protruding from the puncture site with a balloon inflated inside the stent. With the need for proximal control, the incision was extended towards the anterior-superior iliac spine and the muscle layer was divided. The retroperitoneum was entered. There was a retroperitoneal hematoma that was drained. Attention was then turned towards the external iliac artery, which was dissected back to the common iliac artery and hypogastric. These were all controlled with vessel loops. The balloon from the left groin was deflated and removed with brisk bleeding through the stent. This was controlled with digital pressure and a Satinsky clamp placed on the common iliac artery and an iliac clamp on the hypogastric. A clamp was placed distally in an area that was soft. The stent was identified, and with gentle traction, was removed. A OPERATIVE REPORT [id number] SATURNINO SANDOVAL Marily catheter was placed distally with no clot. The patient's ACT was 198. He was given two more 1000 units of heparin. The puncture site was examined and was felt to be able to be closed primarily. This was closed in 2 layers of running 6-0 Prolene suture. All maneuvers to remove trapped air were performed. The clamps were removed with excellent distal flow. There was good Doppler flow through the distal common femoral artery and there was no bleeding from the iliac artery itself. The heparin was not reversed. The retroperitoneum was irrigated. There was no active bleeding. The instrument counts and sponge counts were correct times 2. Drains were placed in the retroperitoneum and one brought out through the subcutaneous tissue in the abdomen medially and one through the upper thigh. The wounds were again examined. There was no bleeding. The instrument counts and sponge counts were again correct times 2. The muscle layers were closed in layers utilizing 2-0 Vicryl on the deep layers, #0 Ethibond on the external aponeurosis. The subcutaneous tissue was irrigated and the area over the common femoral and superficial femoral arteries were closed with interrupted 2-0 Vicryl. The subcutaneous tissue was closed with 2-0 Vicryl. The skin was closed with skin staple. Sterile dressings were applied. The patient tolerated the procedure and was transferred to the [facility] ICU in critical but stable condition. TRANSINT:[id number] Voice Confirmation ID: [id number] DOCUMENT ID: [id number] ELDER MOORE MD at 1112 CC: [id number] DICTATION DATE: 05/20/17 1544 BREAD PACKER: 05/20/17 1703 ADM IN [place] [id number] [place] [address]
[~2017-05-20 09:31] MED LIST changes: +ARICEPT10 MG PO; +GEODON20 MG PO; +LINZESS145 MCG PO; +MILK OF MAGNESI30 ML PO
[2017-05-20 10:25] LABS: BASOPHILS 0.9 % (0-2); HEMATOCRIT 42.6 % (42.0-54.0); HEMOGLOBIN 13.5 g/dL (13.5-17.5); IMMATURE GRANULOCYTES 0.1 % (0-5); LYMPHOCYTES 17.4 % (15-50); MCH 29.7 pg (26.0-34.0); MCHC 31.7 g/dL (31.0-37.0); MCV 93.8 fL (80.0-100.0); MEAN PLATELET VOLUME 9.5 fL (7.4-10.4); MONOCYTES 11.9 % (2-11); NEUTROPHILS 66.7 % (40-80); PLATELET COUNT 221 10x3/uL (130-400); RBC 4.54 10x6/uL (4.20-6.10); RDW 14.5 % (11.5-14.5); WBC 7.7 10x3/uL (4.8-10.8)
[2017-05-20 10:51] LABS: ANION GAP 17.4 mmol/L (8-16); CALCIUM 8.8 mg/dL (8.5-10.1); CREATININE - SERUM 1.3 mg/dL (0.6-1.3); POTASSIUM - SERUM 4.4 mmol/L (3.5-5.1)
[2017-05-20 12:19] LABS: HEMATOCRIT 35.5 % (42.0-54.0); HEMOGLOBIN 11.1 g/dL (13.5-17.5)
[2017-05-20 13:04] LABS: BASOPHILS 0.6 % (0-2); IMMATURE GRANULOCYTES 0.1 % (0-5); LYMPHOCYTES 27.1 % (15-50); MCH 29.5 pg (26.0-34.0); MCHC 31.7 g/dL (31.0-37.0); MEAN PLATELET VOLUME 9.5 fL (7.4-10.4); MONOCYTES 7.2 % (2-11); RDW 14.4 % (11.5-14.5); WBC 8.3 10x3/uL (4.8-10.8)
[2017-05-20 13:05] LABS: PLATELET COUNT 273 10x3/uL (130-400)
[2017-05-20 16:23] LABS: HEMATOCRIT 35.7 % (42.0-54.0); HEMOGLOBIN 11.4 g/dL (13.5-17.5)
[2017-05-21] VITALS (69 sets, daily range): BP systolic 91–140; BP diastolic 31–57; BMI 24.4
[2017-05-21 06:09] LABS: BASOPHILS 0.1 % (0-2); EOSINOPHILS 0 % (0-7); HEMATOCRIT 30.9 % (42.0-54.0); HEMOGLOBIN 9.9 g/dL (13.5-17.5); IMMATURE GRANULOCYTES 0.3 % (0-5); LYMPHOCYTES 5.3 % (15-50); MCH 28.8 pg (26.0-34.0); MEAN PLATELET VOLUME 8.8 fL (7.4-10.4); MONOCYTES 6.6 % (2-11); NEUTROPHILS 87.7 % (40-80); RBC 3.44 10x6/uL (4.20-6.10); RDW 15.6 % (11.5-14.5)
[2017-05-21 06:19] LABS: MCV 89.8 fL (80.0-100.0); PLATELET COUNT 205 10x3/uL (130-400)
[2017-05-21 06:28] LABS: ALBUMIN 2.1 g/dL (3.4-5.0); ANION GAP 15.3 mmol/L (8-16); BILIRUBIN - TOTAL 0.35 mg/dL (0.2-1.3); CARBON DIOXIDE 25.3 mmol/L (21.0-32.0); MAGNESIUM - SERUM 1.3 mg/dL (1.8-2.4); PHOSPHOROUS 4.3 mg/dL (2.5-4.9); POTASSIUM - SERUM 4.6 mmol/L (3.5-5.1); PROTEIN - SERUM 4.8 g/dL (6.4-8.2)
[2017-05-21 06:29] LABS: CREATININE - SERUM 1.8 mg/dL (0.6-1.3)
[2017-05-21 06:31] LABS: APTT 35.6 SECONDS (22.8-39.4); INR 1.18 (0.85-1.17); PROTIME 14.6 SECONDS (11.6-15.0)
[2017-05-22] VITALS (19 sets, daily range): BP systolic 82–119; BP diastolic 41–80
[2017-05-22 03:22] LABS: BASOPHILS 0.2 % (0-2); EOSINOPHILS 0 % (0-7); HEMATOCRIT 25.6 % (42.0-54.0); HEMOGLOBIN 8.2 g/dL (13.5-17.5); IMMATURE GRANULOCYTES 0.4 % (0-5); LYMPHOCYTES 5.3 % (15-50); MCH 28.9 pg (26.0-34.0); MCV 90.1 fL (80.0-100.0); MEAN PLATELET VOLUME 9.2 fL (7.4-10.4); MONOCYTES 11.1 % (2-11); PLATELET COUNT 206 10x3/uL (130-400); RBC 2.84 10x6/uL (4.20-6.10); RDW 15.4 % (11.5-14.5); WBC 19.7 10x3/uL (4.8-10.8)
[2017-05-22 03:35] LABS: ALBUMIN 2.3 g/dL (3.4-5.0); ANION GAP 15.3 mmol/L (8-16); BILIRUBIN - TOTAL 0.48 mg/dL (0.2-1.3); CALCIUM 7.5 mg/dL (8.5-10.1); CARBON DIOXIDE 24.2 mmol/L (21.0-32.0); CREATININE - SERUM 2.3 mg/dL (0.6-1.3); MAGNESIUM - SERUM 2.4 mg/dL (1.8-2.4); PHOSPHOROUS 5.2 mg/dL (2.5-4.9); POTASSIUM - SERUM 4.5 mmol/L (3.5-5.1); PROTEIN - SERUM 5.2 g/dL (6.4-8.2)
[2017-05-22 16:05] LABS: HEMOGLOBIN 11.1 g/dL (13.5-17.5)
[2017-05-23] VITALS (23 sets, daily range): BP systolic 89–117; BP diastolic 53–74; Ht 172.7 cm; Wt 87.3 kg
[2017-05-23 04:54] LABS: BASOPHILS 0.1 % (0-2); EOSINOPHILS 0 % (0-7); HEMATOCRIT 34.8 % (42.0-54.0); HEMOGLOBIN 11.2 g/dL (13.5-17.5); IMMATURE GRANULOCYTES 0.4 % (0-5); LYMPHOCYTES 4.5 % (15-50); MCH 28.3 pg (26.0-34.0); MCHC 32.2 g/dL (31.0-37.0); MEAN PLATELET VOLUME 9.8 fL (7.4-10.4); MONOCYTES 11.4 % (2-11); NEUTROPHILS 83.6 % (40-80); PLATELET COUNT 207 10x3/uL (130-400); RDW 16.9 % (11.5-14.5); WBC 19.3 10x3/uL (4.8-10.8)
[2017-05-23 04:58] LABS: MCV 87.9 fL (80.0-100.0); RBC 3.96 10x6/uL (4.20-6.10)
[2017-05-23 05:06] LABS: APPEARANCE HAZY (CLEAR); BILIRUBIN NEGATIVE (NEGATIVE); COLOR YELLOW (YELLOW); GLUCOSE NEGATIVE (NEGATIVE); KETONE NEGATIVE (NEGATIVE); NITRITE NEGATIVE (NEGATIVE); PROTEIN TRACE mg/dL (NEGATIVE); UROBILINOGEN NORMAL (NORMAL)
[2017-05-23 05:07] LABS: BACTERIA FEW /hpf (NONE SEEN); EPITHELIAL CELLS NSEEN /hpf (0-5); WHITE CELLS - URINE 0-5 /hpf (0-5)
[2017-05-23 05:20] LABS: ALBUMIN 2.5 g/dL (3.4-5.0); ANION GAP 17.5 mmol/L (8-16); BILIRUBIN - TOTAL 0.8 mg/dL (0.2-1.3); CALCIUM 8.4 mg/dL (8.5-10.1); CARBON DIOXIDE 22.1 mmol/L (21.0-32.0); CREATININE - SERUM 2.7 mg/dL (0.6-1.3); MAGNESIUM - SERUM 2.6 mg/dL (1.8-2.4); PHOSPHOROUS 5.4 mg/dL (2.5-4.9); POTASSIUM - SERUM 4.6 mmol/L (3.5-5.1); PROTEIN - SERUM 6.1 g/dL (6.4-8.2)
[2017-05-23 05:23] LABS: INR 1.18 (0.85-1.17); PROTIME 14.6 SECONDS (11.6-15.0)
[2017-05-23 05:24] LABS: APTT 37.8 SECONDS (22.8-39.4)
[2017-05-24] VITALS (27 sets, daily range): BP systolic 74–124; BP diastolic 38–76
[2017-05-24 05:00] LABS: BASOPHILS 0.1 % (0-2); EOSINOPHILS 0.1 % (0-7); HEMOGLOBIN 10.7 g/dL (13.5-17.5); IMMATURE GRANULOCYTES 0.3 % (0-5); LYMPHOCYTES 5.2 % (15-50); MCH 28.1 pg (26.0-34.0); MCHC 31.5 g/dL (31.0-37.0); MCV 89.2 fL (80.0-100.0); MONOCYTES 10.8 % (2-11); NEUTROPHILS 83.5 % (40-80); PLATELET COUNT 223 10x3/uL (130-400); RBC 3.81 10x6/uL (4.20-6.10); RDW 16.4 % (11.5-14.5); WBC 17.2 10x3/uL (4.8-10.8)
[2017-05-24 05:20] LABS: ALBUMIN 2.3 g/dL (3.4-5.0); ANION GAP 14.1 mmol/L (8-16); BILIRUBIN - TOTAL 0.7 mg/dL (0.2-1.3); CALCIUM 8.5 mg/dL (8.5-10.1); CARBON DIOXIDE 24.7 mmol/L (21.0-32.0); CREATININE - SERUM 2.8 mg/dL (0.6-1.3); PHOSPHOROUS 5.4 mg/dL (2.5-4.9); POTASSIUM - SERUM 4.8 mmol/L (3.5-5.1); PROTEIN - SERUM 6.2 g/dL (6.4-8.2)
[2017-05-25] VITALS (98 sets, daily range): BP systolic 63–148; BP diastolic 35–85
[2017-05-25 08:54] LABS: ANION GAP 16.2 mmol/L (8-16); CALCIUM 8.1 mg/dL (8.5-10.1); CARBON DIOXIDE 25.4 mmol/L (21.0-32.0); CREATININE - SERUM 3.3 mg/dL (0.6-1.3); POTASSIUM - SERUM 4.6 mmol/L (3.5-5.1)
[2017-05-25 10:01] LABS: BASOPHILS 0 % (0-2); EOSINOPHILS 0 % (0-7); HEMATOCRIT 30.8 % (42.0-54.0); HEMOGLOBIN 9.4 g/dL (13.5-17.5); IMMATURE GRANULOCYTES 0.4 % (0-5); LYMPHOCYTES 7.1 % (15-50); MCHC 30.5 g/dL (31.0-37.0); NEUTROPHILS 85.5 % (40-80); PLATELET COUNT 204 10x3/uL (130-400); RBC 3.36 10x6/uL (4.20-6.10); RDW 16.3 % (11.5-14.5)
[2017-05-25 10:04] LABS: MCV 91.7 fL (80.0-100.0); WBC 11.3 10x3/uL (4.8-10.8)
[2017-05-25 10:25] LABS: MAGNESIUM - SERUM 3.3 mg/dL (1.8-2.4)
[2017-05-25 10:27] LABS: TROPONIN-I 19.529 ng/mL (0.000-0.060)
[2017-05-26] VITALS (94 sets, daily range): BP systolic 82–143; BP diastolic 40–82
[2017-05-26 03:51] LABS: BASOPHILS 0.1 % (0-2); EOSINOPHILS 0.3 % (0-7); HEMATOCRIT 29.1 % (42.0-54.0); HEMOGLOBIN 9.3 g/dL (13.5-17.5); IMMATURE GRANULOCYTES 0.4 % (0-5); LYMPHOCYTES 7.5 % (15-50); MCH 28.4 pg (26.0-34.0); MEAN PLATELET VOLUME 10.1 fL (7.4-10.4); MONOCYTES 13.7 % (2-11); PLATELET COUNT 227 10x3/uL (130-400); RBC 3.28 10x6/uL (4.20-6.10); RDW 16.3 % (11.5-14.5); WBC 11.9 10x3/uL (4.8-10.8)
[2017-05-26 03:59] LABS: MCV 88.7 fL (80.0-100.0)
[2017-05-26 04:27] LABS: ALBUMIN 2.8 g/dL (3.4-5.0); ANION GAP 19.3 mmol/L (8-16); BILIRUBIN - TOTAL 1.14 mg/dL (0.2-1.3); CALCIUM 8.2 mg/dL (8.5-10.1); CARBON DIOXIDE 19.7 mmol/L (21.0-32.0); CREATININE - SERUM 2.8 mg/dL (0.6-1.3); PROTEIN - SERUM 5.7 g/dL (6.4-8.2)
[2017-05-26 04:51] LABS: PHOSPHOROUS 3.3 mg/dL (2.5-4.9); TROPONIN-I 25.902 ng/mL (0.000-0.060)
[2017-05-27] VITALS (79 sets, daily range): BP systolic 99–125; BP diastolic 51–69
[2017-05-27 06:01] LABS: BASOPHILS 0.1 % (0-2); EOSINOPHILS 0.8 % (0-7); HEMATOCRIT 30.5 % (42.0-54.0); HEMOGLOBIN 9.7 g/dL (13.5-17.5); IMMATURE GRANULOCYTES 1.1 % (0-5); LYMPHOCYTES 5.3 % (15-50); MCH 27.9 pg (26.0-34.0); MCHC 31.8 g/dL (31.0-37.0); MCV 87.6 fL (80.0-100.0); MEAN PLATELET VOLUME 9.6 fL (7.4-10.4); MONOCYTES 13.3 % (2-11); NEUTROPHILS 79.4 % (40-80); PLATELET COUNT 215 10x3/uL (130-400); RBC 3.48 10x6/uL (4.20-6.10); RDW 16.7 % (11.5-14.5); WBC 14.3 10x3/uL (4.8-10.8)
[2017-05-27 06:11] LABS: ANION GAP 15.7 mmol/L (8-16); CREATININE - SERUM 2.6 mg/dL (0.6-1.3); POTASSIUM - SERUM 3.7 mmol/L (3.5-5.1)
[2017-05-27 20:09] LABS: AFB SPECIMEN PROCESSING Concentration (())
[2017-05-28] VITALS (29 sets, daily range): BP systolic 91–130; BP diastolic 45–68
[2017-05-28 05:36] LABS: BASOPHILS 0.2 % (0-2); EOSINOPHILS 1.8 % (0-7); HEMATOCRIT 30.9 % (42.0-54.0); HEMOGLOBIN 9.7 g/dL (13.5-17.5); LYMPHOCYTES 6.6 % (15-50); MCH 27.9 pg (26.0-34.0); MCHC 31.4 g/dL (31.0-37.0); MCV 88.8 fL (80.0-100.0); MEAN PLATELET VOLUME 9.7 fL (7.4-10.4); MONOCYTES 10.1 % (2-11); NEUTROPHILS 78.3 % (40-80); PLATELET COUNT 230 10x3/uL (130-400); RBC 3.48 10x6/uL (4.20-6.10); WBC 11.8 10x3/uL (4.8-10.8)
[2017-05-28 05:51] LABS: ANION GAP 13.1 mmol/L (8-16); CALCIUM 8.1 mg/dL (8.5-10.1); CARBON DIOXIDE 22.3 mmol/L (21.0-32.0); CREATININE - SERUM 2.3 mg/dL (0.6-1.3); POTASSIUM - SERUM 3.4 mmol/L (3.5-5.1)
[2017-05-28 11:19] LABS: FUNGUS STAIN Final report (())
[2017-05-29] VITALS (21 sets, daily range): BP systolic 90–110; BP diastolic 46–63
[2017-05-29 06:13] LABS: ANION GAP 13.4 mmol/L (8-16); CALCIUM 8.2 mg/dL (8.5-10.1); CARBON DIOXIDE 22.3 mmol/L (21.0-32.0); CREATININE - SERUM 2.4 mg/dL (0.6-1.3); POTASSIUM - SERUM 3.7 mmol/L (3.5-5.1)
[2017-05-29 06:46] LABS: BASOPHILS 0.3 % (0-2); EOSINOPHILS 2.3 % (0-7); HEMATOCRIT 30.7 % (42.0-54.0); HEMOGLOBIN 9.6 g/dL (13.5-17.5); IMMATURE GRANULOCYTES 4.7 % (0-5); MCH 28.2 pg (26.0-34.0); MCHC 31.3 g/dL (31.0-37.0); MEAN PLATELET VOLUME 9.8 fL (7.4-10.4); MONOCYTES 11.9 % (2-11); NEUTROPHILS 72.8 % (40-80); PLATELET COUNT 226 10x3/uL (130-400); RBC 3.41 10x6/uL (4.20-6.10); RDW 17.2 % (11.5-14.5)
[2017-05-30] VITALS (24 sets, daily range): BP systolic 95–146; BP diastolic 46–79
[2017-05-30 05:41] LABS: BASOPHILS 0.6 % (0-2); EOSINOPHILS 2.2 % (0-7); HEMATOCRIT 29.9 % (42.0-54.0); HEMOGLOBIN 9.2 g/dL (13.5-17.5); IMMATURE GRANULOCYTES 3.9 % (0-5); LYMPHOCYTES 6.9 % (15-50); MCH 27.9 pg (26.0-34.0); MCHC 30.8 g/dL (31.0-37.0); MCV 90.6 fL (80.0-100.0); MEAN PLATELET VOLUME 9.7 fL (7.4-10.4); NEUTROPHILS 72.4 % (40-80); PLATELET COUNT 210 10x3/uL (130-400); RDW 17.3 % (11.5-14.5); WBC 10.9 10x3/uL (4.8-10.8)
[2017-05-30 06:05] LABS: ANION GAP 14.1 mmol/L (8-16); CALCIUM 7.8 mg/dL (8.5-10.1); CARBON DIOXIDE 22.6 mmol/L (21.0-32.0); CREATININE - SERUM 2.4 mg/dL (0.6-1.3); POTASSIUM - SERUM 3.7 mmol/L (3.5-5.1)
[2017-05-30 11:59] LABS: AMORPHOUS SEDIMENT <1+ /lpf (NONE SEEN); APPEARANCE SLT CLOUDY (CLEAR); BACTERIA MODERATE /hpf (NONE SEEN); BILIRUBIN NEGATIVE (NEGATIVE); COLOR YELLOW (YELLOW); EPITHELIAL CELLS 0-5 /hpf (0-5); GLUCOSE NEGATIVE (NEGATIVE); GRANULAR CAST OCC /lpf (NONE SEEN); KETONE NEGATIVE (NEGATIVE); MUCUS <1+ /lpf (NONE SEEN); NITRITE NEGATIVE (NEGATIVE); PROTEIN TRACE mg/dL (NEGATIVE); SPECIFIC GRAVITY 1.015 (1.005-1.020); UROBILINOGEN NORMAL (NORMAL); WHITE CELLS - URINE 0-5 /hpf (0-5)
[2017-05-30 12:07] LABS: CREATININE - URINE 106.1 mg/dL (30-125)
[2017-05-31] VITALS (24 sets, daily range): BP systolic 102–133; BP diastolic 47–64
[2017-05-31 05:47] LABS: BASOPHILS 0.4 % (0-2); EOSINOPHILS 1.7 % (0-7); HEMATOCRIT 28.8 % (42.0-54.0); IMMATURE GRANULOCYTES 2.7 % (0-5); MCHC 31.3 g/dL (31.0-37.0); MCV 89.7 fL (80.0-100.0); MEAN PLATELET VOLUME 9.6 fL (7.4-10.4); MONOCYTES 13.5 % (2-11); NEUTROPHILS 75.7 % (40-80); PLATELET COUNT 208 10x3/uL (130-400); RBC 3.21 10x6/uL (4.20-6.10); RDW 17.3 % (11.5-14.5); WBC 12.4 10x3/uL (4.8-10.8)
[2017-05-31 06:02] LABS: ANION GAP 11.2 mmol/L (8-16); CARBON DIOXIDE 23.5 mmol/L (21.0-32.0); CREATININE - SERUM 2.3 mg/dL (0.6-1.3); POTASSIUM - SERUM 3.7 mmol/L (3.5-5.1)
[2017-06-01] VITALS (24 sets, daily range): BP systolic 99–122; BP diastolic 48–70
[2017-06-01 05:48] LABS: BASOPHILS 0.1 % (0-2); EOSINOPHILS 1.3 % (0-7); HEMATOCRIT 30.6 % (42.0-54.0); HEMOGLOBIN 9.4 g/dL (13.5-17.5); IMMATURE GRANULOCYTES 2.2 % (0-5); MCH 27.8 pg (26.0-34.0); MCHC 30.7 g/dL (31.0-37.0); MCV 90.5 fL (80.0-100.0); MEAN PLATELET VOLUME 9.5 fL (7.4-10.4); MONOCYTES 13.9 % (2-11); NEUTROPHILS 77.5 % (40-80); PLATELET COUNT 215 10x3/uL (130-400); RBC 3.38 10x6/uL (4.20-6.10); RDW 17.4 % (11.5-14.5); WBC 14.3 10x3/uL (4.8-10.8)
[2017-06-01 05:52] LABS: ANION GAP 15.7 mmol/L (8-16); CALCIUM 8.4 mg/dL (8.5-10.1); CARBON DIOXIDE 23.4 mmol/L (21.0-32.0); CREATININE - SERUM 2.3 mg/dL (0.6-1.3); POTASSIUM - SERUM 4.1 mmol/L (3.5-5.1)
[2017-06-02] VITALS (24 sets, daily range): BP systolic 100–131; BP diastolic 48–68
[2017-06-02 06:13] LABS: BASOPHILS 0.1 % (0-2); EOSINOPHILS 1.1 % (0-7); HEMATOCRIT 29.3 % (42.0-54.0); IMMATURE GRANULOCYTES 1.8 % (0-5); LYMPHOCYTES 10.1 % (15-50); MCH 27.7 pg (26.0-34.0); MCHC 30.7 g/dL (31.0-37.0); MCV 90.2 fL (80.0-100.0); MEAN PLATELET VOLUME 9.5 fL (7.4-10.4); MONOCYTES 7.9 % (2-11); PLATELET COUNT 232 10x3/uL (130-400); RBC 3.25 10x6/uL (4.20-6.10); RDW 17.2 % (11.5-14.5); WBC 14.2 10x3/uL (4.8-10.8)
[2017-06-02 06:34] LABS: ANION GAP 11.8 mmol/L (8-16); CALCIUM 8.4 mg/dL (8.5-10.1); CARBON DIOXIDE 25.2 mmol/L (21.0-32.0); CREATININE - SERUM 2.1 mg/dL (0.6-1.3)
[2017-06-02 17:11] LABS: FUNGUS CULTURE RESULT 1 Candida glabrata (()); FUNGUS MYCOLOGY CULTURE Final report (())
[2017-06-03] VITALS (24 sets, daily range): BP systolic 11–135; BP diastolic 51–73
[2017-06-03 06:02] LABS: BASOPHILS 0.2 % (0-2); EOSINOPHILS 1.3 % (0-7); HEMATOCRIT 29.4 % (42.0-54.0); IMMATURE GRANULOCYTES 2.4 % (0-5); LYMPHOCYTES 4.8 % (15-50); MCH 27.8 pg (26.0-34.0); MCHC 30.6 g/dL (31.0-37.0); MCV 90.7 fL (80.0-100.0); MEAN PLATELET VOLUME 9.4 fL (7.4-10.4); MONOCYTES 14.6 % (2-11); NEUTROPHILS 76.7 % (40-80); PLATELET COUNT 274 10x3/uL (130-400); RBC 3.24 10x6/uL (4.20-6.10); RDW 17.3 % (11.5-14.5); WBC 13.5 10x3/uL (4.8-10.8)
[2017-06-03 06:19] LABS: ANION GAP 14.2 mmol/L (8-16); CALCIUM 8.3 mg/dL (8.5-10.1); CARBON DIOXIDE 25.9 mmol/L (21.0-32.0); POTASSIUM - SERUM 4.1 mmol/L (3.5-5.1)
[2017-06-03 16:14] LABS: AFB SPECIMEN PROCESSING Concentration (())
[2017-06-04] VITALS (24 sets, daily range): BP systolic 101–122; BP diastolic 51–65
[2017-06-04 06:25] LABS: ANION GAP 11.7 mmol/L (8-16); BILIRUBIN - DIRECT 0.81 mg/dL (0.00-0.30); BILIRUBIN - INDIRECT 0.33 mg/dL (0.00-1.00); BILIRUBIN - TOTAL 1.14 mg/dL (0.2-1.3); CALCIUM 8.3 mg/dL (8.5-10.1); CARBON DIOXIDE 29.4 mmol/L (21.0-32.0); CREATININE - SERUM 1.8 mg/dL (0.6-1.3); POTASSIUM - SERUM 4.1 mmol/L (3.5-5.1); PROTEIN - SERUM 5.4 g/dL (6.4-8.2)
[2017-06-04 07:44] LABS: BASOPHILS 0.3 % (0-2); EOSINOPHILS 0.8 % (0-7); HEMATOCRIT 29.7 % (42.0-54.0); HEMOGLOBIN 9.3 g/dL (13.5-17.5); IMMATURE GRANULOCYTES 1.9 % (0-5); MCH 28.4 pg (26.0-34.0); MCHC 31.3 g/dL (31.0-37.0); MCV 90.5 fL (80.0-100.0); MEAN PLATELET VOLUME 9.5 fL (7.4-10.4); MONOCYTES 11.1 % (2-11); NEUTROPHILS 81.9 % (40-80); RBC 3.28 10x6/uL (4.20-6.10); RDW 17.3 % (11.5-14.5); WBC 14.9 10x3/uL (4.8-10.8)
[2017-06-04 07:47] LABS: PLATELET COUNT 342 10x3/uL (130-400)
[2017-06-04 11:21] LABS: FUNGUS STAIN Final report (())
[2017-06-05] VITALS (27 sets, daily range): BP systolic 98–140; BP diastolic 48–86
[2017-06-05 06:12] LABS: BASOPHILS 0.3 % (0-2); EOSINOPHILS 0.8 % (0-7); HEMATOCRIT 30.7 % (42.0-54.0); HEMOGLOBIN 9.7 g/dL (13.5-17.5); IMMATURE GRANULOCYTES 1.8 % (0-5); LYMPHOCYTES 9.2 % (15-50); MCH 28.2 pg (26.0-34.0); MCHC 31.6 g/dL (31.0-37.0); MCV 89.2 fL (80.0-100.0); MEAN PLATELET VOLUME 9.5 fL (7.4-10.4); MONOCYTES 5.3 % (2-11); NEUTROPHILS 82.6 % (40-80); PLATELET COUNT 366 10x3/uL (130-400); RBC 3.44 10x6/uL (4.20-6.10); RDW 17.3 % (11.5-14.5); WBC 15.3 10x3/uL (4.8-10.8)
[2017-06-05 06:53] LABS: ALBUMIN 1.9 g/dL (3.4-5.0); ANION GAP 12.5 mmol/L (8-16); CALCIUM 8.7 mg/dL (8.5-10.1); CARBON DIOXIDE 30.2 mmol/L (21.0-32.0); CREATININE - SERUM 1.8 mg/dL (0.6-1.3); POTASSIUM - SERUM 3.7 mmol/L (3.5-5.1); PROTEIN - SERUM 6.2 g/dL (6.4-8.2)
[2017-06-05 08:34] LABS: INR 1.09 (0.85-1.17); PROTIME 13.7 SECONDS (11.6-15.0)
[2017-06-05 08:35] LABS: APTT 28.8 SECONDS (22.8-39.4)
[2017-06-05 15:43] LABS: MESOTHELIALS BF 12 %; NEUT - BF 73 %
[2017-06-05 18:34] LABS: APPEARANCE CLEAR (CLEAR); BILIRUBIN NEGATIVE (NEGATIVE); COLOR YELLOW (YELLOW); GLUCOSE NEGATIVE (NEGATIVE); KETONE NEGATIVE (NEGATIVE); NITRITE NEGATIVE (NEGATIVE); PROTEIN NEGATIVE (NEGATIVE); UROBILINOGEN NORMAL (NORMAL)
[2017-06-05 18:36] LABS: BACTERIA FEW /hpf (NONE SEEN); RED CELLS - URINE 0-5 /hpf (0-5); WHITE CELLS - URINE 0-5 /hpf (0-5)
[2017-06-06] VITALS (24 sets, daily range): BP systolic 90–125; BP diastolic 43–64
[2017-06-06 06:15] LABS: BASOPHILS 0.7 % (0-2); EOSINOPHILS 1.3 % (0-7); HEMATOCRIT 30.2 % (42.0-54.0); HEMOGLOBIN 9.4 g/dL (13.5-17.5); IMMATURE GRANULOCYTES 2.2 % (0-5); LYMPHOCYTES 6.4 % (15-50); MCH 27.8 pg (26.0-34.0); MCHC 31.1 g/dL (31.0-37.0); MCV 89.3 fL (80.0-100.0); MEAN PLATELET VOLUME 9.5 fL (7.4-10.4); NEUTROPHILS 77.4 % (40-80); PLATELET COUNT 382 10x3/uL (130-400); RBC 3.38 10x6/uL (4.20-6.10); RDW 17.2 % (11.5-14.5); WBC 12.7 10x3/uL (4.8-10.8)
[2017-06-06 06:35] LABS: ALBUMIN 1.8 g/dL (3.4-5.0); ANION GAP 13.3 mmol/L (8-16); BILIRUBIN - TOTAL 0.86 mg/dL (0.2-1.3); CALCIUM 8.9 mg/dL (8.5-10.1); CARBON DIOXIDE 32.4 mmol/L (21.0-32.0); CREATININE - SERUM 1.9 mg/dL (0.6-1.3); POTASSIUM - SERUM 3.7 mmol/L (3.5-5.1); PROTEIN - SERUM 6.1 g/dL (6.4-8.2)
[2017-06-06 17:12] LABS: FUNGUS CULTURE RESULT 1 Candida tropicalis (())
[2017-06-06 22:09] LABS: AFB SPECIMEN PROCESSING Concentration (())
[2017-06-07] VITALS (24 sets, daily range): BP systolic 90–116; BP diastolic 43–69
[2017-06-07 04:58] LABS: BASOPHILS 0.6 % (0-2); EOSINOPHILS 1.1 % (0-7); HEMATOCRIT 30.7 % (42.0-54.0); HEMOGLOBIN 9.8 g/dL (13.5-17.5); IMMATURE GRANULOCYTES 1.5 % (0-5); LYMPHOCYTES 5.8 % (15-50); MCH 28.5 pg (26.0-34.0); MCHC 31.9 g/dL (31.0-37.0); MCV 89.2 fL (80.0-100.0); MEAN PLATELET VOLUME 9.1 fL (7.4-10.4); MONOCYTES 11.1 % (2-11); NEUTROPHILS 79.9 % (40-80); PLATELET COUNT 350 10x3/uL (130-400); RBC 3.44 10x6/uL (4.20-6.10); RDW 17.1 % (11.5-14.5); WBC 14.2 10x3/uL (4.8-10.8)
[2017-06-07 05:09] LABS: ANION GAP 7.3 mmol/L (8-16); CALCIUM 8.9 mg/dL (8.5-10.1); CARBON DIOXIDE 35.2 mmol/L (21.0-32.0); CREATININE - SERUM 1.9 mg/dL (0.6-1.3); POTASSIUM - SERUM 3.5 mmol/L (3.5-5.1)
[2017-06-07 16:50] LABS: CREATININE - URINE 12.5 mg/dL (30-125)
[2017-06-07 16:51] LABS: PROTEIN - URINE 9.7 mg/dL (0.0-11.9)
[2017-06-08] VITALS (24 sets, daily range): BP systolic 100–140; BP diastolic 51–80
[2017-06-08 05:35] LABS: BASOPHILS 0.5 % (0-2); HEMATOCRIT 25.6 % (42.0-54.0); HEMOGLOBIN 8.2 g/dL (13.5-17.5); IMMATURE GRANULOCYTES 1.4 % (0-5); LYMPHOCYTES 8.6 % (15-50); MCV 90.5 fL (80.0-100.0); MEAN PLATELET VOLUME 9.5 fL (7.4-10.4); MONOCYTES 5.1 % (2-11); NEUTROPHILS 83.4 % (40-80); PLATELET COUNT 318 10x3/uL (130-400); RBC 2.83 10x6/uL (4.20-6.10); RDW 17.1 % (11.5-14.5); WBC 13.4 10x3/uL (4.8-10.8)
[2017-06-08 05:40] LABS: ANION GAP 15.2 mmol/L (8-16); CALCIUM 7.7 mg/dL (8.5-10.1); CARBON DIOXIDE 32.8 mmol/L (21.0-32.0); CREATININE - SERUM 1.8 mg/dL (0.6-1.3)
[2017-06-08 12:37] LABS: HEMATOCRIT 30.5 % (42.0-54.0); HEMOGLOBIN 9.4 g/dL (13.5-17.5)
[2017-06-09] VITALS (29 sets, daily range): BP systolic 94–122; BP diastolic 52–67
[2017-06-09 04:36] LABS: BASOPHILS 0.5 % (0-2); EOSINOPHILS 1.1 % (0-7); HEMATOCRIT 29.3 % (42.0-54.0); IMMATURE GRANULOCYTES 1.1 % (0-5); LYMPHOCYTES 7.9 % (15-50); MCHC 30.7 g/dL (31.0-37.0); MEAN PLATELET VOLUME 9.4 fL (7.4-10.4); MONOCYTES 7.2 % (2-11); NEUTROPHILS 82.2 % (40-80); PLATELET COUNT 334 10x3/uL (130-400); RBC 3.22 10x6/uL (4.20-6.10); RDW 17.1 % (11.5-14.5); WBC 14.3 10x3/uL (4.8-10.8)
[2017-06-09 05:09] LABS: ALBUMIN 2.7 g/dL (3.4-5.0); ANION GAP 11.3 mmol/L (8-16); BILIRUBIN - TOTAL 1.87 mg/dL (0.2-1.3); CALCIUM 9.3 mg/dL (8.5-10.1); CARBON DIOXIDE 36.9 mmol/L (21.0-32.0); CREATININE - SERUM 2.1 mg/dL (0.6-1.3); POTASSIUM - SERUM 4.2 mmol/L (3.5-5.1)
[2017-06-09 11:13] LABS: FUNGUS STAIN Final report (())
[2017-06-10] VITALS (12 sets, daily range): BP systolic 100–123; BP diastolic 50–64
[2017-06-10 06:12] LABS: BASOPHILS 0.7 % (0-2); EOSINOPHILS 1.3 % (0-7); HEMOGLOBIN 8.6 g/dL (13.5-17.5); LYMPHOCYTES 6.9 % (15-50); MCH 27.8 pg (26.0-34.0); MCHC 30.7 g/dL (31.0-37.0); MCV 90.6 fL (80.0-100.0); MEAN PLATELET VOLUME 9.9 fL (7.4-10.4); MONOCYTES 9.1 % (2-11); PLATELET COUNT 329 10x3/uL (130-400); RBC 3.09 10x6/uL (4.20-6.10); RDW 17.1 % (11.5-14.5); WBC 13.4 10x3/uL (4.8-10.8)
[2017-06-10] MEDS ORDERED: ARICEPT10 MG PT (09:06)
[2017-06-10] MEDS ORDERED: BROVANA15 MCG/2 M INH (09:06)
[2017-06-10] MEDS ORDERED: ATROVENT 0.02%2.5 ML UPD (09:07)
[2017-06-10] MEDS ORDERED: XOPENEX 0.0.63 MG/3 UPD (09:07)
[2017-06-10] MEDS ORDERED: CORDARONE200 MG PEG (09:08)
[2017-06-10] MEDS ORDERED: LOVENOX30 MG/0.3 SC (09:08)
[2017-06-10] MEDS ORDERED: GEODON20 MG PO (09:10)
[2017-06-10] MEDS ORDERED: DIURIL IV (09:14)
[2017-06-10] MEDS ORDERED: POTASSIUM20 MEQ/PKT PEG (09:16)
[2017-06-10] MEDS ORDERED: PULMICORT0.5 MG/21 UPD (09:17)
[2017-06-10] MEDS ORDERED: PERIDEX480 ML PO (09:17)
[2017-06-10] MEDS ORDERED: PROTONIX I40 MG/VIAL IV (09:19)
[2017-06-10] MEDS ORDERED: SENOKOT-S TABLE1 TAB PT (09:19)
[2017-06-10] MEDS ORDERED: COLACE100 MG PT (09:23)
[2017-06-10] MEDS ORDERED: ONDANSETRON4 MG/2 M3 IV (09:23)
[2017-06-10] MEDS ORDERED: MILK OF MAGNESI30 ML PT (09:24)
[2017-06-10] MEDS ORDERED: GUAIFENESI100 MG/5 M PT (09:25)
[2017-06-10] MEDS ORDERED: ALBUMINAR-25100 ML IV (09:26)
[2017-06-30 12:10] LABS: FUNGUS MYCOLOGY CULTURE Final report (())
[2017-07-04 17:12] LABS: FUNGUS MYCOLOGY CULTURE Final report (())
[2017-07-16 13:19] LABS: ACID FAST CULTURE Negative (()); ACID FAST SMEAR Negative (())
[2017-07-21 15:09] LABS: ACID FAST CULTURE Negative (()); ACID FAST SMEAR Negative (())
[2017-07-28 18:09] LABS: ACID FAST CULTURE Negative (()); ACID FAST SMEAR Negative (())
== END 2017-06-10 14:23 | disposition short-term general hospital (02) | DRG 3 ==
LOC: D.CATH 09:31 → D.CVICU 09:31 → D.CATH 12:00 → D.CVICU 12:50 → D.CATH 14:47 → D.CVICU 14:48
PROVIDERS: Internal Medicine Cardiovascular Disease; Internal Medicine Interventional Cardiology; Internal Medicine Nephrology; Internal Medicine Pulmonary Disease; Specialist; Thoracic Surgery (Cardiothoracic Vascular Surgery)
PROC: 4A023N7 Measurement of Cardiac Sampling and Pressure, Left Heart, Percutaneous Approach (ICD-10-PCS; 2017-05-20)
PROC: 047H3EZ Dilation of Right External Iliac Artery with Two Intraluminal Devices, Percutaneous Approach (ICD-10-PCS; 2017-05-20)
PROC: B41D1ZZ Fluoroscopy of Aorta and Bilateral Lower Extremity Arteries using Low Osmolar Contrast (ICD-10-PCS; 2017-05-20)
PROC: 4A133BC Monitoring of Arterial Pressure, Coronary, Percutaneous Approach (ICD-10-PCS; principal; 2017-05-20 12:00)
PROC: 04QH0ZZ Repair Right External Iliac Artery, Open Approach (ICD-10-PCS; 2017-05-20 12:00)
PROC: B2151ZZ Fluoroscopy of Left Heart using Low Osmolar Contrast (ICD-10-PCS; 2017-05-20 12:00)
PROC: 0B968ZZ Drainage of Right Lower Lobe Bronchus, Via Natural or Artificial Opening Endoscopic (ICD-10-PCS; 2017-05-24)
PROC: 0B938ZZ Drainage of Right Main Bronchus, Via Natural or Artificial Opening Endoscopic (ICD-10-PCS; 2017-05-24)
PROC: 0BH17EZ Insertion of Endotracheal Airway into Trachea, Via Natural or Artificial Opening (ICD-10-PCS; 2017-05-25)
PROC: 5A1955Z Respiratory Ventilation, Greater than 96 Consecutive Hours (ICD-10-PCS; 2017-05-25)
PROC: 02HV33Z Insertion of Infusion Device into Superior Vena Cava, Percutaneous Approach (ICD-10-PCS; 2017-05-26)
PROC: B548ZZA Ultrasonography of Superior Vena Cava, Guidance (ICD-10-PCS; 2017-05-26)
PROC: 0B998ZZ Drainage of Lingula Bronchus, Via Natural or Artificial Opening Endoscopic (ICD-10-PCS; 2017-06-02)
PROC: 0B948ZZ Drainage of Right Upper Lobe Bronchus, Via Natural or Artificial Opening Endoscopic (ICD-10-PCS; 2017-06-02)
PROC: 0B988ZZ Drainage of Left Upper Lobe Bronchus, Via Natural or Artificial Opening Endoscopic (ICD-10-PCS; 2017-06-02)
PROC: 0B938ZZ Drainage of Right Main Bronchus, Via Natural or Artificial Opening Endoscopic (ICD-10-PCS; 2017-06-02)
PROC: 0B978ZZ Drainage of Left Main Bronchus, Via Natural or Artificial Opening Endoscopic (ICD-10-PCS; 2017-06-02)
PROC: 0B968ZZ Drainage of Right Lower Lobe Bronchus, Via Natural or Artificial Opening Endoscopic (ICD-10-PCS; 2017-06-02)
PROC: 0B9B8ZZ Drainage of Left Lower Lobe Bronchus, Via Natural or Artificial Opening Endoscopic (ICD-10-PCS; 2017-06-02)
PROC: 0B113F4 Bypass Trachea to Cutaneous with Tracheostomy Device, Percutaneous Approach (ICD-10-PCS; 2017-06-04)
PROC: 0W993ZZ Drainage of Right Pleural Cavity, Percutaneous Approach (ICD-10-PCS; 2017-06-05)
DX: T82.855A Stenosis of coronary artery stent, initial encounter (principal); I50.23 Acute on chronic systolic (congestive) heart failure; J96.02 Acute respiratory failure with hypercapnia; N17.0 Acute kidney failure with tubular necrosis; J15.6 Pneumonia due to other Gram-negative bacteria; I46.9 Cardiac arrest, cause unspecified; J44.0 Chronic obstructive pulmonary disease with (acute) lower respiratory infection; J44.1 Chronic obstructive pulmonary disease with (acute) exacerbation; D62 Acute posthemorrhagic anemia; I97.51 Accidental puncture and laceration of a circulatory system organ or structure during a circulatory system procedure; T17.590A Other foreign object in bronchus causing asphyxiation, initial encounter; F01.51 Vascular dementia, unspecified severity, with behavioral disturbance; Z66 Do not resuscitate; I25.119 Atherosclerotic heart disease of native coronary artery with unspecified angina pectoris; Y83.8 Other surgical procedures as the cause of abnormal reaction of the patient, or of later complication, without mention of misadventure at the time of the procedure; R58 Hemorrhage, not elsewhere classified; I11.0 Hypertensive heart disease with heart failure; I27.20 Pulmonary hypertension, unspecified; I08.1 Rheumatic disorders of both mitral and tricuspid valves; F17.200 Nicotine dependence, unspecified, uncomplicated; I25.10 Atherosclerotic heart disease of native coronary artery without angina pectoris; Z95.5 Presence of coronary angioplasty implant and graft; E78.5 Hyperlipidemia, unspecified; I73.9 Peripheral vascular disease, unspecified; Y84.0 Cardiac catheterization as the cause of abnormal reaction of the patient, or of later complication, without mention of misadventure at the time of the procedure; Z91.19 Patient's noncompliance with other medical treatment and regimen; I95.81 Postprocedural hypotension; Y95 Nosocomial condition; I48.91 Unspecified atrial fibrillation; R00.1 Bradycardia, unspecified; I70.219 Atherosclerosis of native arteries of extremities with intermittent claudication, unspecified extremity